=== PATIENT | male | born 1940 | race Caucasian/White ===

== ENCOUNTER 2017-02-20 06:05 | Day surgery (SDC) | payer MEDICARE ==
[~2017-02-20] VITALS: Ht 177.8 cm; Wt 88.4 kg
[~2017-02-20 06:05] MED LIST: ALLO100T PO; ASPI81 PO; BENETAB OR; CARV12.5 PO; DIPH25 PO; ENAL20TA PO; EXEN10PE SQ; FAMO1TAB36 PO; FISH1000 PO; GLYB1TAB51 PO; LIPI40TA PO; LOTR5CAP2 PO; METF-324 PO; MOME17I; TAB-TAB PO; VIT D3 PO; VITB OR
[2017-02-20] MEDS ORDERED: NS 1000P @30 MLS/HR (KVO) IV SCH (06:30)
[2017-02-20 06:38] VITALS: BP 167/83; PULSE 65; RESP 18; TEMP 98.3; O2SAT 99
[2017-02-20] MEDS ORDERED: PANT40TA3 PO (06:47)
[2017-02-20] MEDS ORDERED: ENAL20TA PO (06:47)
[2017-02-20] MEDS ORDERED: CENTTAB PO (06:47)
[2017-02-20] MEDS ORDERED: COEN400C (06:47)
[2017-02-20] MEDS ORDERED: TRIA1SPR6 EACH NARE (06:47)
[2017-02-20] MEDS ORDERED: NITR0.4S SL (06:47)
[2017-02-20] MEDS ORDERED: GLYB6TAB PO (06:47)
[2017-02-20] MEDS ORDERED: CARV6.252 PO (06:47)
[2017-02-20] MEDS ORDERED: COBA1000 PO (06:47)
[2017-02-20] MEDS ORDERED: TURMCAP (06:47)
[2017-02-20] MEDS ORDERED: LANTUS2P (06:47)
[2017-02-20] MEDS ORDERED: AMLO10TA2 PO (06:47)
[2017-02-20] MEDS ORDERED: BENA25CA4 (06:47)
[2017-02-20] MEDS ORDERED: ATOR40TA16 PO (06:47)
[2017-02-20] MEDS ORDERED: METF1000 PO (06:47)
[2017-02-20] MEDS ORDERED: ALLO100T PO (06:47)
[2017-02-20] MEDS ORDERED: LOPE7.5C PO (06:47)
[2017-02-20] MEDS ORDERED: NOVOLOGP2 SQ (06:47)
[2017-02-20] MEDS ORDERED: FISH1000 (06:47)
[2017-02-20] MEDS ORDERED: ASPI1TAB69 PO (06:47)
[2017-02-20 07:33] LABS: AUTOMATED NEUTROPHIL # 4.1 TH/MM3 (1.8-7.7); BASOPHIL # 0.1 TH/MM3 (0-0.2); BASOPHIL % 0.7 % (0.0-2.0); EOSINOPHIL # 0.1 TH/MM3 (0-0.4); EOSINOPHIL % 0.9 % (0.0-4.0); HEMO FLAGS DIFF FINAL; LYMPHOCYTE # 4.7 TH/MM3 (1.0-4.8); MEAN CELL VOLUME 85.5 FL (80.0-100.0); MEAN CORPUSCULAR HEMOGLOBIN 30.4 PG (27.0-34.0); MEAN CORPUSCULAR HGB CONC 35.5 % (32.0-36.0); MONO % 6.6 % (0.0-8.0); NEUT % 42.8 % (16.0-70.0); PLATELET COUNT 117 TH/MM3 (150-450); RED CELL DISTRIBUTION WIDTH 15.4 % (11.6-17.2); WHITE BLOOD COUNT 9.7 TH/MM3 (4.0-11.0)
[2017-02-20 07:45] LABS: BICARBONATE 25.5 MEQ/L (21.0-32.0); POTASSIUM 4.4 MEQ/L (3.5-5.1)
[2017-02-20] MEDS ORDERED: HEPARIN-NS/PF INJ 500 ML ONE (08:07)
[2017-02-20 08:13] LABS: APTT (PATIENT) 25.3 SEC (24.3-30.1); INTERNATIONAL NORMALIZED RATIO 1.1 RATIO; PROTHROMBIN TIME - PATIENT 12.7 SEC (9.8-11.6)
[2017-02-20] MEDS ORDERED: IOHEXOL 350 MG/ML 100 ML BTL (for Cath Lab) OTHER ONE (09:00)
[2017-02-20] MEDS ORDERED: LORazepam 2 MG/ML VIAL IV PRN (09:15)
[2017-02-20] MEDS ORDERED: BACITRACIN OINT 0.9 GM PKT TOP ONE (09:15)
[2017-02-20] MEDS ORDERED: ATROPINE SULFATE 1 MG/ML VIAL IV PRN (09:15)
[2017-02-20] MEDS ORDERED: ONDANSETRON HCL 4 MG/2 ML VIAL IV PRN (09:15)
[2017-02-20] MEDS ORDERED: METOCLOPRAMIDE HCL 10 MG/2 ML VIAL IV PRN (09:15)
[2017-02-20] MEDS ORDERED: LIDOCAINE HCL 1% 50 ML VIAL INFIL PRN (09:15)
[2017-02-20] MEDS ORDERED: MISC INFORMATION XX ONE (09:15)
[2017-02-20] MEDS ORDERED: SODIUM CHLOR 0.9% 250 ML INJ 250 ML IV PRN (09:15)
--- NOTE | 2017-02-20 10:06 | MA ---
cc: KANNAN SOSA MD DATE 02/20/2017 PROCEDURE Cardiac catheterization. The patient was prepped and draped in the usual fashion. A 6 sheath was inserted percutaneously into the left femoral artery. The right femoral artery was attempted to be cannulated but the wire was unable to pass easily. Coronary angiography was done with Cecilio preformed catheters and left ventriculography was done in the right anterior oblique projection with a pigtail catheter. RESULTS Aortic pressure was 140/90. Left ventricular end-diastolic pressure was 9. There was no gradient across the aortic valve. CORONARY ARTERIOGRAPHY The left main coronary demonstrated a 50% stenosis in its distal portion. The left anterior descending artery arose at the takeoff of the first diagonal branch. The LAD demonstrated a stenosis of 90%. A second 50% stenosis was present in the midportion of the LAD. The distal portion of the artery appeared to be free from significant disease. It was noted that the LAD and diagonal system as well as the circumflex system demonstrates significant calcification on fluoroscopy. The first diagonal after taking off from the LAD demonstrated a 75% stenosis in its midportion. It then bifurcated into two secondary branches which were free from disease. The left circumflex artery arose from the left main. No significant stenoses were seen in the left circumflex system. The right coronary was anatomically dominant. Significant calcification was present in its proximal portion. At the midportion of the artery, a subtotal stenosis was present compromising the lumen by approximately 99%. Collateralization of the of the first septal auxiliary engineer was realized from the right coronary system with some faint collateralization of the LAD system from the right coronary. LEFT VENTRICULOGRAPHY Left ventriculography demonstrated normal left ventricle with EF estimated at 50%. No mitral regurgitation was present. Kannan Sosa MD DLW/SSB /9:05 AM /10:00 AM
--- NOTE | 2017-02-20 14:20 | PD.CAR.PN ---
CVT Progress Note Subjective/Hospital Course: sts data discussed with pt RISK SCORES About the STS Risk Calculator Procedure: CAB Only Risk of Mortality: 0.933% Morbidity or Mortality: 10.622% Long Length of Stay: 3.692% Short Length of Stay: 54.635% Permanent Stroke: 0.757% Prolonged Ventilation: 6.164% DSW Infection: 0.661% Renal Failure: 1.94% Reoperation: 4.503% Objective: Vital Signs Date Time Temp Pulse Resp B/P Pulse Ox O2 Delivery O2 Flow Rate FiO2 02/20/17 09:19 98 Room Air 02/20/17 06:38 98.3 65 18 167/83 99 Labs: Laboratory Tests Test 02/20/17 02/20/17 07:20 07:50 White Blood Count 9.7 TH/MM3 (4.0-11.0) Red Blood Count 4.10 MIL/MM3 (4.50-5.90) Hemoglobin 12.4 GM/DL (13.0-17.0) Hematocrit 35.0 % (39.0-51.0) Mean Corpuscular Volume 85.5 FL (80.0-100.0) Mean Corpuscular Hemoglobin 30.4 PG (27.0-34.0) Mean Corpuscular Hemoglobin 35.5 % Concent (32.0-36.0) Red Cell Distribution Width 15.4 % (11.6-17.2) Platelet Count 117 TH/MM3 (150-450) Mean Platelet Volume 7.5 FL (7.0-11.0) Neutrophils (%) (Auto) 42.8 % (16.0-70.0) Lymphocytes (%) (Auto) 49.0 % (9.0-44.0) Monocytes (%) (Auto) 6.6 % (0.0-8.0) Eosinophils (%) (Auto) 0.9 % (0.0-4.0) Basophils (%) (Auto) 0.7 % (0.0-2.0) Neutrophils # (Auto) 4.1 TH/MM3 (1.8-7.7) Lymphocytes # (Auto) 4.7 TH/MM3 (1.0-4.8) Monocytes # (Auto) 0.6 TH/MM3 (0-0.9) Eosinophils # (Auto) 0.1 TH/MM3 (0-0.4) Basophils # (Auto) 0.1 TH/MM3 (0-0.2) CBC Comment DIFF FINAL Differential Comment Sodium Level 132 MEQ/L (136-145) Potassium Level 4.4 MEQ/L (3.5-5.1) Chloride Level 98 MEQ/L (98-107) Carbon Dioxide Level 25.5 MEQ/L (21.0-32.0) Anion Gap 9 MEQ/L (5-15) Blood Urea Nitrogen 13 MG/DL (7-18) Creatinine 0.94 MG/DL (0.60-1.30) Estimat Glomerular Filtration 78 ML/MIN (>89) Rate Random Glucose 161 MG/DL (74-106) Calcium Level 8.5 MG/DL (8.5-10.1) Prothrombin Time 12.7 SEC (9.8-11.6) Prothromb Time International 1.1 RATIO Ratio Activated Partial 25.3 SEC Thromboplast Time (24.3-30.1) Result Diagram: 02/20/17 0720 02/20/17 0720 Melissa Smith Feb 20, 2017 14:20
--- NOTE | 2017-02-20 15:53 | RADRPT ---
EXAM DATE/TIME: 02/20/2017 14:40 [facility] COMPARISON: No previous studies available for comparison. INDICATIONS : Preop cardiac surgery. MEDICAL HISTORY : Hypertension. Diabetes. Inguinal hernia. Basal cell left arm. SURGICAL HISTORY : Angioplasty. Eye surgery. ENCOUNTER: Initial ACUITY: 1 day PAIN SCORE: 0/10 LOCATION: Bilateral leg. TECHNIQUE: Venous ultrasound of the left and right leg was performed from the inguinal ligament to the proximal calf. Real-time, color Doppler and spectral tracing, compression and augmentation techniques were us ed. FINDINGS: RIGHT LEG: There is normal compressibility of the deep venous system from the inguinal region to the proximal ca lf. No echogenic clot is seen in the lumen of the common femoral, femoral, popliteal, and posterior tibial veins. There is a normal response of the venous system to proximal and distal augmentation an d respiration. LEFT LEG: There is normal compressibility of the deep venous system from the inguinal region to the proximal ca lf. No echogenic clot is seen in the lumen of the common femoral, femoral, popliteal, and posterior tibial veins. There is a normal response of the venous system to proximal and distal augmentation an d respiration. CONCLUSION: 1. No evidence of deep venous thrombosis. Kannan Elam MD on February 20, 2017 at 15:50 Board Certified Radiologist. This report was verified electronically.
[2017-02-20 16:16] LABS: BLOOD, URINE NEG (NEG); GLUCOSE,URINE NEG (NEG); KETONE, URINE TRACE mg/dL (NEG); NITRITE,URINE NEG (NEG); PH, URINE 7.5 (5.0-8.5); URINE COLOR YELLOW (YELLW/STRAW)
[2017-02-20 16:17] LABS: COMMENT (UR) CATH-CULT NOT IND; CULTURE IF INDICATED CATH CULTURE NOT IND
--- NOTE | 2017-02-20 16:21 | RADRPT ---
EXAM DATE/TIME: 02/20/2017 15:35 [facility] COMPARISON: No previous studies available for comparison. INDICATIONS : Evaluate for pneumonia, pneumothorax or communicable disease.Pre op for bypass surgery 02-23-17 MEDICAL HISTORY : Hypertension. diabetes SURGICAL HISTORY : angioplasty ENCOUNTER: Initial ACUITY: 1 day PAIN SCORE: 0/10 LOCATION: Bilateral chest FINDINGS: A single view of the chest demonstrates the lungs to be symmetrically aerated without evidence of mas s, infiltrate or effusion. The cardiomediastinal contours are unremarkable. Osseous structures are intact. CONCLUSION: No acute disease. Kunal Osborne MD on February 20, 2017 at 16:19 Board Certified Radiologist. This report was verified electronically.
--- NOTE | 2017-02-20 16:24 | RADRPT ---
EXAM DATE/TIME: 02/20/2017 15:19 [facility] COMPARISON: No previous studies available for comparison. INDICATIONS : PreOp cardiac surgery. MEDICAL HISTORY : Hypertension. Diabetes. Basal cell left arm. Inguinal hernia. SURGICAL HISTORY : Angioplasty. Eye surgery. ENCOUNTER: Initial ACUITY: 1 day PAIN SCORE: 0/10 LOCATION: Bilateral neck PEAK SYSTOLIC VELOCITIES (cm/sec): ICA/CCA RATIO: Right: 0.8 Left: 1.1 ICA: Right: 98 Left: 128 CCA: Right: 122 Left: 114 ECA: Right: 122 Left: 197 VERTEBRAL: Right: 50 antegrade Left: 55 antegrade Elevated flow velocities and ICA/CCA ratios have been found to correlate with increased degrees of vessel stenosis, calculated as percentage of diameter relative to a normal segment of distal ICA/CCA FINDINGS: Ultrasound of the carotid arteries was performed bilaterally using real-time Doppler and color Dopple r imaging. Examination of the right carotid artery demonstrates moderate fibrous plaque within the bifurcation. No waveform abnormalities are identified and no spectral broadening is seen. Examination of the left carotid artery demonstrates moderate fibrous plaque within the bulb. No waveform abnormalities are i dentified and no spectral broadening is seen. There is antegrade flow in both vertebral arteries. CONCLUSION: No evidence of hemodynamically significant lesion. Kannan Elam MD on February 20, 2017 at 16:21 Board Certified Radiologist. This report was verified electronically.
--- NOTE | 2017-02-20 16:29 | RADRPT ---
EXAM DATE/TIME: 02/20/2017 14:50 [facility] COMPARISON: No previous studies available for comparison. INDICATIONS : Preop cardiac surgery. MEDICAL HISTORY : Hypertension. Diabetes. Inguinal hernia. Basal cell left arm. SURGICAL HISTORY : Angioplasty. Inguinal hernia repair. Eye surgery. ENCOUNTER: Initial ACUITY: 1 day PAIN SCORE: 0/10 LOCATION: Bilateral leg. GREATER SAPHENOUS VEIN THIGH: PROXIMAL: Right 4 mm Left 5 mm MID: Right 2 mm Left 2 mm DISTAL: Right 2 mm Left 2 mm CALF: PROXIMAL: Right 2 mm Left 2 mm MID: Right 2 mm Left 2 mm DISTAL: Right 1 mm Left 2 mm FINDINGS: The venous system of the lower extremities are patent by color Doppler imaging. Measurements of the leg veins (in mm) are listed above. CONCLUSION: 1. Venous mapping as above Kannan Elam MD on February 20, 2017 at 16:27 Board Certified Radiologist. This report was verified electronically.
[2017-02-20 17:03] LABS: HEMOGLOBIN A1b 1.6 %; HEMOGLOBIN Ao 85.5 %; HEMOGLOBIN LA1C 2.3 %; HEMOGLOBIN P3 3.8 %
--- NOTE | 2017-02-21 07:24 | MB ---
cc: QUIANA OLIVIA MD DATE OF CONSULTATION 02/20/2017 REASON FOR CONSULTATION A 76-year-old male patient of Dr. Jayna Asencio, Dr. Kannan Sosa, who has a history of coronary artery disease recently started noticing some increased fatigue while he had been working out on the treadmill, started in October as he had worsening tolerance. He underwent a stress test which was unremarkable by Dr. Kannan Sosa but then he went to a trip at [place] recently last week, noticed some tightness with walking and became short of breath. The tightness was relieved with rest. He underwent cardiac cath today by Dr. Kannan Sosa which showed an EF of 60%, left main disease 50%, proximal LAD 90%. The diagonal 75%. The RCA 99%. We were consulted to evaluate for coronary artery bypass grafting. PAST MEDICAL HISTORY Significant for: 1. Coronary artery disease. 2. Diverticulosis. 3. Diabetes mellitus on insulin and oral medication. 4. Gout. 5. Hypertension. 6. Hyperlipidemia. 7. Monoclonal gammopathy. 8. Obesity. 9. Peripheral arterial disease. PAST SURGICAL HISTORY 1. Bilateral cataract surgery. 2. Colonoscopy. 3. He has had some basal cell carcinoma of the left upper arm removed 1982. 4. He has had some detached retina on the right times two, left times one. 5. He has had prior cryosurgery. 6. And scleral banding. 7. He has had history of hand surgery with Dupuytren's contracture of the right third and fifth fingers, the left index finger. 8. He has had a right inguinal hernia repair. 9. He has had angioplasty x2 in the past to the mid LAD. ALLERGIES HE HAS NO KNOWN ALLERGIES, HOWEVER, HE HAS OAK OR [place]. FAMILY HISTORY Mother complications after aortic valve surgery. She had a sternal infection, they were unable to do the bypass surgery. Father in a plane crash in World War II. Paternal grandfather with coronary artery disease. SOCIAL HISTORY The patient , two children, two stepchildren. Smoked for 15 years 1/3 of pack, quit in 1980. Was drinking up to two cocktails per evening but since he noticed this chest discomfort he has rarely had any alcohol intake. REVIEW OF SYSTEMS GENERAL: No night sweats, fever, heat and cold intolerance. SKIN: No psoriasis, itching or hives. HEENT: No blurred vision, hearing loss. RESPIRATORY: Positive for shortness of breath. CARDIOVASCULAR: As above in HPI. GASTROINTESTINAL: No diarrhea, vomiting. GENITOURINARY: No burning, frequency, urgency CENTRAL NERVOUS SYSTEM: No history of TIA, CVA, seizure disorder. ENDOCRINE: Positive for diabetes. PHYSICAL EXAMINATION VITAL SIGNS: On exam blood pressure 160/80, heart rate 65, temperature max 98.3. GENERAL: Patient is awake, alert, no acute distress. HEENT: Head is normocephalic, atraumatic. Oral mucosa pink, moist, good dentition. NECK: Supple. No JVD. CARDIOVASCULAR: Heart sounds S1-S2, regular rate and rhythm. There is a soft systolic murmur left sternal border. LUNGS: Clear to auscultation. No wheezes, rales or rhonchi. ABDOMEN: Soft, nontender. No masses or organomegaly. Extremities: No cyanosis, clubbing or edema. LABORATORY FINDINGS Shows hemoglobin 12, hematocrit 35, white cell count 9.7, platelet count 117. Sodium 132, potassium 4.4, BUN 13, creatinine 0.94. INR 1.1. Carotid ultrasound of leg vein mapping pending. Also hemoglobin A1c and MRSA screen. Procedures, alternatives have been discussed with the patient. The cardiac films have been evaluated by Dr. Quiana Olivia. The patient at this time is agreeable to proceed for surgery with bypass grafting to the LAD, diagonal and the RCA. STS data will be documented and discussed with the patient and placed in the electronic record. PLAN The plan will be for surgery on February 23. DICTATED BY: KAM Wisdom Quiana VINCENT /2:00 PM /7:22 AM
--- NOTE | 2017-02-28 10:21 | RSPPFT ---
DATE OF PROCEDURE: 02/20/17 COMMENTS: Spirometry with FVC of 3.8 predicted 3.9, FEV1 of 3.0 predicted 3.1, FEV1/FVC ratio 80% predicted 78%. IMPRESSION: On the basis of the above, patient has flow values within the predicted range.
== END 2017-02-20 16:16 | disposition home or self-care (01) ==
LOC: HDOC 06:05 → HDIC 06:05 → HDOC 16:16
PROVIDERS: ATTEND Internal Medicine Cardiovascular Disease
DX: I25.10 Atherosclerotic heart disease of native coronary artery without angina pectoris (principal); I10 Essential (primary) hypertension; E78.5 Hyperlipidemia, unspecified; I73.9 Peripheral vascular disease, unspecified; E11.9 Type 2 diabetes mellitus without complications; E66.9 Obesity, unspecified; M10.9 Gout, unspecified; Z79.4 Long term (current) use of insulin; Z85.828 Personal history of other malignant neoplasm of skin; Z87.891 Personal history of nicotine dependence; Z01.818 Encounter for other preprocedural examination
CPT/HCPCS: 71010; 80048; 81001; 83036; 85025; 85610; 85730; 87641; 93458; 93880; 93970; 93998; 94010; C1769; C1893; J1644; Q9967

== ENCOUNTER 2017-02-21 10:07 | Inpatient (IN) | payer MEDICARE ==
[~2017-02-21] VITALS: Ht 177.8 cm; Wt 87.1 kg
[~2017-02-21 10:07] MED LIST changes: +AMLO10TA2 PO; +ASPI1TAB69 PO; -ASPI81 PO; +ATOR40TA16 PO; +BENA25CA4; -BENETAB OR; -CARV12.5 PO; +CARV6.252 PO; +CENTTAB PO; +COBA1000 PO; +COEN400C; -DIPH25 PO; -EXEN10PE SQ; -FAMO1TAB36 PO; +FISH1000; -FISH1000 PO; -GLYB1TAB51 PO; +GLYB6TAB PO; +LANTUS2P; -LIPI40TA PO; +LOPE7.5C PO; -LOTR5CAP2 PO; -METF-324 PO; +METF1000 PO; -MOME17I; +NITR0.4S SL; +NOVOLOGP2 SQ; +PANT40TA3 PO; -TAB-TAB PO; +TRIA1SPR6 EACH NARE; +TURMCAP; -VITB OR
[2017-02-23] VITALS (9 sets, daily range): BP systolic 88–149; BP diastolic 49–80; PULSE 58–65; RESP 14–18; TEMP 97.2–99.2; O2SAT 94–99
[2017-02-23] MEDS ORDERED: PROTAMINE SULFATE 250 MG/25 ML VIAL IV ONE (05:00)
[2017-02-23] MEDS ORDERED: DEXMEDETOMIDINE INJ 50 ML IV ONE (05:00)
[2017-02-23] MEDS ORDERED: PROPOFOL 1000 MG/100 ML INJ 100 ML IV ONE (05:00)
[2017-02-23] MEDS ORDERED: AMINOCAPROIC ACID INJ 250 MG/ML 20 ML VIAL IV ONE (05:00)
[2017-02-23] MEDS ORDERED: ARTIFICIAL TEARS OPTH OINT 3.5 APPLIC/3.5 GM TUBO ONE (05:00)
[2017-02-23] MEDS ORDERED: MAGNESIUM SULFATE 1000 MG/2 ML VIAL (PED) IV ONE (05:00)
[2017-02-23] MEDS ORDERED: EPINEPHrine HCL (1:1000) 1 MG/ML VIAL IV ONE (05:00)
[2017-02-23] MEDS ORDERED: HEPARIN SODIUM - SQ 10,000 UNITS/ML VIAL SQ ONE (05:00)
[2017-02-23] MEDS ORDERED: NEOSTIGMINE METHYLSULFATE 10 MG/10 ML VIAL IV PUSH ONE (05:00)
[2017-02-23] MEDS ORDERED: METOPROLOL TARTRATE 25 MG TAB PO PRN (09:30)
[2017-02-23] MEDS ORDERED: METOPROLOL TARTRATE 25 MG TAB PO SCH (09:30)
[2017-02-23] MEDS ORDERED: LACTATED RINGER'S 1000 ML IV PRN (09:30)
[2017-02-23] MEDS ORDERED: SODIUM CHLORIDE 0.9% FLUSH 10 ML FLUSH IV FLUSH PRN ×3 (09:30→17:30)
[2017-02-23] MEDS ORDERED: CEFAZOLIN 500 MG in NS IRR BTL 500 ML IRRIGATION SCH (09:30)
[2017-02-23] MEDS ORDERED: INSULIN HUMAN REGULAR 1,000 UNITS/10 ML VIAL SQ PRN (09:30)
[2017-02-23] MEDS ORDERED: INSULIN REGULAR 100 UNITS in NS 100 ML IV SCH (09:30)
[2017-02-23] MEDS ORDERED: ceFAZolin 2 GM PREMIX 50 ML IV SCH (09:30)
[2017-02-23] MEDS ORDERED: POVIDONE IODINE 5% (ANTISEPSIS KIT) 4 APPLICATIONS EACH NARE PRN (09:30)
[2017-02-23] MEDS ORDERED: CHLORHEXIDINE GLUCONATE 2 % 1 PACK (2 CLOTHS) TOPICAL PRN (09:30)
[2017-02-23] MEDS ORDERED: SODIUM CHLORID 0.9% 500 ML IV PRN (09:30)
[2017-02-23] MEDS ORDERED: PAPAVERINE 60 MG-NITROGLYCERIN 100 MCG-DILTIAZEM 100 MG in NS 100 ML IRRIGATION SCH ×4 (09:30)
[2017-02-23] MEDS ORDERED: CHLORHEXIDINE GLUCONATE 4% SOLN 120 ML BTL TOPICAL SCH (09:30)
[2017-02-23] MEDS ORDERED: SODIUM CHLOR 0.9% 1000 ML INJ 1,000 ML IV ONE (11:52)
[2017-02-23] MEDS ORDERED: SODIUM CHLOR 0.9% 250 ML INJ 500 ML IV ONE (11:52)
[2017-02-23] MEDS ORDERED: SODIUM CHLORIDE 0.9% INJ 200 ML IV ONE (11:52)
[2017-02-23] MEDS ORDERED: LACTATED RINGER'S 1000 ML INJ 3,000 ML IV ONE (11:52)
[2017-02-23] MEDS ORDERED: SODIUM CHLORID 0.9% 500 ML INJ 500 ML IV ONE (11:53)
[2017-02-23] MEDS ORDERED: NORMOSOL R INJ 2,000 ML IV ONE (11:53)
[2017-02-23] MEDS ORDERED: VANCOMYCIN HCL 1000 MG VIAL ONE (11:58)
[2017-02-23] MEDS ORDERED: ceFAZolin 2 GM PREMIX 50 ML ONE (11:59)
[2017-02-23] MEDS ORDERED: HEPARIN SODIUM - SQ 10,000 UNITS/ML VIAL ONE (11:59)
[2017-02-23] MEDS ORDERED: fentaNYL CITRATE 1000 MCG/20 ML VIAL ONE (12:25)
[2017-02-23] MEDS ORDERED: MIDAZOLAM HCL 5 MG/5 ML VIAL ONE (12:25)
[2017-02-23] MEDS ORDERED: LACTATED RINGER'S 1000 ML INJ 500 ML IV PRN (17:22)
[2017-02-23] MEDS ORDERED: DOBUTamine PREMIX DRIP 250 ML IV SCH (17:22)
[2017-02-23] MEDS ORDERED: Post-op Orders (for Pharmacy) MISC OTHER ONE (17:30)
[2017-02-23] MEDS ORDERED: DEXMEDETOMIDINE INJ 200 MCG in SODIUM CHLORIDE 0.9% INJ 50 ML IV SCH (17:30)
[2017-02-23] MEDS ORDERED: MORPHINE SULFATE 4 MG/ML INJ IV PRN (17:30)
[2017-02-23] MEDS ORDERED: DEXTROSE 50% IN WATER 50 ML VIAL(D50) IV PUSH PRN (17:30)
[2017-02-23] MEDS ORDERED: DOPamine INJ PREMIX 500 ML IV SCH (17:30)
[2017-02-23] MEDS ORDERED: POTASSIUM CHLOR 20 MEQ PREMIX 100 ML IV PRN ×3 (17:30)
[2017-02-23] MEDS ORDERED: NITROGLYCERIN-DEXTROSE INJ 250 ML IV SCH (17:30)
[2017-02-23] MEDS ORDERED: EPINEPHrine (1:1000) INJ 4 MG in DEXTROSE 5% IN WATER INJ 246 ML IV SCH ×2 (17:30)
[2017-02-23] MEDS ORDERED: POTASSIUM CHLORIDE 20 MEQ CONTROLLED RELEASE TAB PO PRN ×2 (17:30)
[2017-02-23] MEDS ORDERED: hydrALAZINE HCL 20 MG/ML VIAL IV PRN (17:30)
[2017-02-23] MEDS ORDERED: CALCIUM CHLORIDE 10% 1 GRAM/10 ML VIAL IV PRN (17:30)
[2017-02-23] MEDS ORDERED: CALCIUM CHLORIDE INJ 1 GM in SODIUM CHLORIDE 0.9% INJ 100 ML IV PRN (17:30)
[2017-02-23] MEDS ORDERED: METOPROLOL TARTRATE 5 MG/5 ML VIAL IV PUSH PRN (17:30)
[2017-02-23] MEDS ORDERED: ALBUMIN HUMAN 5% 12.5 GM/250 ML BOTTLE IV PRN (17:30)
[2017-02-23] MEDS ORDERED: ACETAMINOPHEN 650 MG SUPP RECTAL PRN (17:30)
[2017-02-23] MEDS ORDERED: ceFAZolin INJ 1,000 MG VIAL IV ONE (17:30)
[2017-02-23] MEDS ORDERED: MEPERIDINE HCL 25 MG/ML VIAL IV PRN (17:30)
[2017-02-23] MEDS ORDERED: PHENYLEPHRINE INJ 40 MG in DEXTROSE 5% IN WATE 500 ML INJ 496 ML IV SCH ×2 (17:30)
[2017-02-23] MEDS ORDERED: MAGNESIUM SULFATE INJ 2 GM in SODIUM CHLORIDE 0.9% INJ 100 ML IV PRN ×4 (17:30)
[2017-02-23] MEDS ORDERED: CLEVIDIPINE INJ 50 ML IV SCH (17:30)
[2017-02-23] MEDS ORDERED: ACETAMINOPHEN 325 MG TAB PO PRN (17:30)
[2017-02-23] MEDS ORDERED: ONDANSETRON HCL 4 MG/2 ML VIAL IV PUSH PRN (17:30)
--- NOTE | 2017-02-23 17:32 | PD.OP ---
cc: Izaiah Guadalupe MD; Kannan Sosa MD Operative Report Date of Surgery: Feb 23, 2017 Preoperative Diagnosis: Postoperative Diagnosis: Procedure: 1. Off-pump Coronary Artery Bypass Grafting x 3 with left internal mammary artery (KENNEDY) to Diagonal ! (D1), reverse saphenous vein graft to the OM1, reverse saphenous vein graft to the RPDA 2. Transmyocardial Laser Revascularization (Anterior wall - 14 channels) 3. Left Leg Endoscopic Vein [place] 4. Intraoperative Vein Mapping. . Surgeon: Izaiah Guadalupe Wax Engraver(s): Lakesha Pineda . Operation and Findings: PREPROCEDURE DIAGNOSES 1. Severe Multi Vessel Coronary Artery Disease. 2. Unstable Angina POSTPROCEDURE DIAGNOSES Same SURGICAL PROCEDURE 1. Off-pump Coronary Artery Bypass Grafting x 3 with left internal mammary artery (KENNEDY) to Diagonal ! (D1), reverse saphenous vein graft to the OM1, reverse saphenous vein graft to the RPDA 2. Transmyocardial Laser Revascularization (Anterior wall - 14 channels) 3. Left Leg Endoscopic Vein [place] 4. Intraoperative Vein Mapping. SURGEON Izaiah Guadalupe MD BROADCAST CORRESPONDENT MATHEW Smith ANESTHESIA General endotracheal DEPUTY CLERK OF COURT JOSH Erickson MD PREPARATION ChloraPrep. COUNTS Needle, sponge, and instrument counts were correct. DRAINS Two 32-Upper Sorbian mediastinal tubes. COMPLICATIONS None. INDICATIONS FOR PROCEDURE The patient is a 76-year-old presenting with chest pain. Patient was noted to have multi-vessel coronary artery disease. The patient is being brought to the operating room for surgical revascularization therapy. PROCEDURE Patient was brought to the operating room and placed supine on the OR table. Following the induction of adequate general endotracheal anesthesia and placement of appropriate monitoring devices, intraoperative vein mapping was performed which revealed suitable-caliber conduit in bilateral LE. The patient was then prepped and draped in standard sterile fashion. Next, 2500 units of intravenous heparin was given. The left greater saphenous vein was harvested endoscopically. This was a usable caliber conduit. Simultaneously, a median sternotomy was performed and the left internal mammary artery dissected free off the posterior sternal table. The patient was systemically heparinized and anticoagulation monitored by serial ACT measurements. The internal mammary artery had excellent pulsatile flow in it and was a decent-caliber conduit. The pericardium was then divided in the midline, the cradle created and targets analyzed. The LAD was noted to be completely calcified through its entire course with no spots available for bypassing. At this point, all anastomoses were performed in a beating-heart fashion using the Maquet stabilizing system with intracoronary shunts. The left internal mammary artery was anastomosed to the diagonal 1 (1.5 mm) in an end-to-side fashion using 7-0 Prolene. Segment of saphenous vein graft was then anastomosed to the OM1 (1.0 mm) in an end-to-side fashion using 7-0 Prolene. The final segment of vein was anastomosed to the RPDA (1.0 mm) in an end-to-side fashion using a running 7-0 Prolene. Of note, all of his coronary target vessels were severely and diffusely calcified. The proximal anastomoses were then constructed to the ascending aorta in a running manner using 6-0 Prolene. All anastomotic sites were inspected and appeared to be hemostatic and patent. Transmyocardial laser revascularization was then performed to the anterior wall. 14 transmural channels were created using the Cryolife laser. Protamine solution was given. Strict hemostasis was assured. The closure was undertaken. 2 chest tubes were placed. The pericardium was reapproximated in the midline. The sternum was approximated using sternal wires. The muscular and fascial layer were then closed in 3 layers. The endoscopic vein harvest site was closed in 2 layers. The patient tolerated the procedure well and was transferred to CVICU in stable condition. Izaiah Guadalupe MD Feb 23, 2017 17:31
[2017-02-23] MEDS ORDERED: ALBUMIN HUMAN 5% 12.5 GM/250 ML BOTTLE IV ONE (17:59)
[2017-02-23] MEDS ORDERED: PHENYLEPHRINE HCL 10 MG/ML VIAL ONE (18:05)
--- NOTE | 2017-02-23 18:16 | RADRPT ---
EXAM DATE/TIME: 02/23/2017 17:39 [facility] COMPARISON: CHEST SINGLE AP, February 20, 2017, 15:35. INDICATIONS : CABG placement. MEDICAL HISTORY : Hypertension. SURGICAL HISTORY : None. ENCOUNTER: Subsequent ACUITY: 3 days PAIN SCORE: Non-responsive. LOCATION: Bilateral chest FINDINGS: Mild left lung base atelectasis and/or infiltrate is seen. There is no appreciable pleural effusion f or technique. Heart and mediastinum are unremarkable. There is evidence for prior median sternotomy . ET tube is present with tip overlapping approximately 3 cm above the rajendra. NG tube is present wit h tip in the stomach. Mediastinal drainage tube is in place. Chest tube is present on the left side. Left subclavian line is present with tip overlapping the expected region of the SVC. No definite pneu mothorax is seen for technique. CONCLUSION: Mild left lung base atelectasis and/or infiltrate is seen. Vijay Barron MD on February 23, 2017 at 18:12 Board Certified Radiologist. This report was verified electronically.
[2017-02-23] MEDS: ACETAMINOPHEN 1000 MG/100 ML VIAL IV SCH (18:29)
[2017-02-23] MEDS: KETOROLAC TROMETHAMINE 30 MG/ML (IVP) VIAL IV PUSH PRN (18:49)
[2017-02-23] MEDS ORDERED: INSULIN REGULAR (IV INFUSION) 100 UNITS in SODIUM CHLORIDE 0.9% INJ 99 ML IV SCH (19:00)
[2017-02-23] MEDS: ceFAZolin 2 GM PREMIX 50 ML IV SCH (20:29)
[2017-02-23] MEDS: AMIODARONE 200 MG TAB PO SCH (20:30)
[2017-02-23] MEDS: SODIUM CHLORIDE 0.9% FLUSH 10 ML FLUSH IV FLUSH SCH (20:30)
[2017-02-23] MEDS: ACETAMINOPHEN/HYDROcodone 325 MG/5 MG TAB PO PRN (20:30)
[2017-02-24] VITALS (19 sets, daily range): BP systolic 102–131; BP diastolic 51–73; PULSE 67–94; RESP 16–17; TEMP 98.3–98.6; O2SAT 93–98
[2017-02-24] MEDS: ACETAMINOPHEN/HYDROcodone 325 MG/5 MG TAB PO PRN ×5 (00:14→21:00)
[2017-02-24] MEDS: ACETAMINOPHEN 1000 MG/100 ML VIAL IV SCH ×4 (00:30→12:40)
[2017-02-24] MEDS: KETOROLAC TROMETHAMINE 30 MG/ML (IVP) VIAL IV PUSH PRN (02:54)
[2017-02-24] MEDS: ceFAZolin 2 GM PREMIX 50 ML IV SCH ×3 (04:53→21:02)
[2017-02-24] MEDS: PANTOPRAZOLE SOD 40 MG DELAYED RELEASE TAB PO SCH (04:53)
[2017-02-24 05:12] LABS: HEMATOCRIT 23.1 % (39.0-51.0); MEAN CELL VOLUME 86.3 FL (80.0-100.0); MEAN CORPUSCULAR HEMOGLOBIN 28.8 PG (27.0-34.0); MEAN CORPUSCULAR HGB CONC 33.3 % (32.0-36.0); PLATELET COUNT 103 TH/MM3 (150-450); RED BLOOD COUNT 2.67 MIL/MM3 (4.50-5.90); RED CELL DISTRIBUTION WIDTH 15.2 % (11.6-17.2); REVIEW FLAG FINAL; WHITE BLOOD COUNT 12.6 TH/MM3 (4.0-11.0)
[2017-02-24 05:40] LABS: BICARBONATE 23.3 MEQ/L (21.0-32.0); MAGNESIUM 2.1 MG/DL (1.5-2.5); POTASSIUM 4.4 MEQ/L (3.5-5.1)
[2017-02-24 05:58] LABS: CALCIUM-PROTEIN CORRECTED 8.7 MG/DL (8.5-10.1)
--- NOTE | 2017-02-24 06:23 | RADRPT ---
EXAM DATE/TIME: 02/24/2017 05:20 [facility] COMPARISON: CHEST SINGLE AP, February 23, 2017, 17:39. INDICATIONS : Status post CABG. MEDICAL HISTORY : Hypertension. SURGICAL HISTORY : None. ENCOUNTER: Subsequent ACUITY: 4 - 6 days PAIN SCORE: Non-responsive. LOCATION: chest FINDINGS: Right lung remains clear. On the left, there is worsening consolidation and effusion at the base. Lef t chest tube remains in place. No pneumothorax. There is a left subclavian catheter tip projects over the aortic arch. Mediastinal drain remains in p lace. CONCLUSION: 1. Worsening basilar consolidation and small effusion on the left. 2. Mediastinal drain and left chest tube remain in place. No pneumothorax. 3. Left subclavian line could be arterial, called to the floor nurse. 4. Endotracheal tube out. Antonino Lacy MD on February 24, 2017 at 6:15 Board Certified Radiologist. This report was verified electronically.
[2017-02-24] MEDS: CLOPIDOGREL 75 MG TAB PO SCH (08:12)
[2017-02-24] MEDS: ASPIRIN 81 MG CHEW TAB PO SCH (08:13)
[2017-02-24] MEDS: SODIUM CHLORIDE 0.9% FLUSH 10 ML FLUSH IV FLUSH SCH ×2 (08:13→21:02)
[2017-02-24] MEDS: AMIODARONE 200 MG TAB PO SCH ×2 (08:13→21:01)
[2017-02-24] MEDS ORDERED: DEXTROSE 50% IN WATER 50 ML VIAL(D50) IV PRN (09:30)
[2017-02-24] MEDS ORDERED: BISACODYL 10 MG SUPP RECTAL PRN (09:30)
[2017-02-24] MEDS ORDERED: FUROSEMIDE 20 MG/2 ML VIAL IV PUSH ONE (09:30)
[2017-02-24] MEDS ORDERED: SOD PHOSPHATE/SOD BIPHOSPHATE (ADULT) ENEMA 133ML RECTAL PRN (09:30)
[2017-02-24] MEDS ORDERED: GLUCAGON 1 MG/ML VIAL OTHER PRN (09:30)
[2017-02-24] MEDS ORDERED: POTASSIUM CHLORIDE 10 MEQ CAP PO ONE (09:30)
[2017-02-24] MEDS: CARVEDILOL 3.125 MG TAB PO SCH ×2 (09:50→21:02)
[2017-02-24] MEDS: DOCUSATE SODIUM 100 MG CAP PO SCH ×2 (09:51→21:01)
[2017-02-24] MEDS: INSULIN ASPART SUPPLEMENTAL SCALE SQ SCH ×4 (10:08→21:28)
--- NOTE | 2017-02-24 10:09 | EKG ---
Date Performed: 02/24/2017 Time Performed: 04:16:16 PTAGE: 76 years EKG: Sinus rhythm with borderline 1st degree A-V block Leftward axis Right bundle branch block Inferior infarct - age undetermined QRS changes V3/V4 may be due to LVH but cannot rule out anterior infarct Low QRS voltage s in precordial leads Abnormal ECG NO PREVIOUS TRACING DOCTOR: Samuel Briseno Interpretating Date/Time 02/24/2017 10:08:14
[2017-02-24] MEDS: FERROUS SULFATE 325 MG (65 MG ELEMENTAL IRON) TAB PO SCH ×2 (12:40→17:58)
[2017-02-24] MEDS: RESP: ALBUTEROL 2.5 MG/IPRATROPIUM 0.5 MG NEB (SCH) NEB ×2 (13:45→19:22)
--- NOTE | 2017-02-24 16:02 | HHI.FF ---
Face to Face Verification Diagnosis: (1) Coronary artery disease (2) S/P CABG x 2 (3) Diabetes mellitus (4) Hyperlipemia (5) Hypertension (6) PAD (peripheral artery disease) Home Health Nursing Order: Signs/symptoms of disease process Medication education-adverse effect Wound care and dressing changes Nursing assessment with vital signs Instructions: Heart and Vascular Surgery patients *Special attention to sternal dressing Mandatory frequency Assess and evaluation, 4 days in a row The next week 3X week 2 times a week for 4 weeks 1 time a week for 5 weeks Schedule Heart and Vascular patients for full 60 day certification period Initial visit Review Open Heart Surgery Discharge Instructions (Sternal precautions, Activity, Elastic hose, Incision care, Driving, Incentive spirometry, Smoking, [place], Work and other) Need Betadine to paint incision Medication reconciliation Importance of follow up care/ check on appointments Make calendar record temperature daily When to call [facility] nurse, review instructions, phone list Incentive Spirometry, demonstration Visit 1- Begin discharge instruction for patient family and/ or caregiver using teach back method- Signs and symptoms of infection Disease characteristics Medicines and side effects Foods and nutrition/ appetite Infection control/ hand washing/ hygiene Visit 2- Continue teaching Discharge instructions- include additional information on smoking cessation , sternal dressing (sternal vac) Visit 3- Continue teaching- Cough and deep breathing, incision monitoring. Choose my plate Visit 4- Continue teaching- Discuss limitations Discuss how they are feeling Discuss progress toward goals Remaining visits- continue teaching and monitoring PREVENA Single Use Negative Wound Therapy System Caregiver Instruction Sheet 1. A Prevena dressing system was applied to the chest incision during surgery , to promote wound healing. It works via a suction device (negative pressure wound therapy) to remove low to moderate levels of exudate (drainage) and infectious materials. We recommend that the device stay in place for up to seven days, from day of surgery. 2. Day of Surgery___02/23/17 Day of Removal ____03/02/17 3. The dressing should only be removed by a health daycare director. Please arrange removal of device to coincide with Home Health visit and or with Nursing staff at Rehab 4. If skin reddening or irritation of skin occurs, or excessive drainage, please notify the Cardiovascular Surgeons office at [phone]. 5. Light showering is permissible; however the pump should be disconnected and placed in safe location, where it will not get wet. The dressing should not be exposed to direct spray or submerged in water. No bath tub / shower only. Ensure the end of the tubing attached to the dressing is facing down so that water does not enter the top of the tube. 6. To remove Prevena dressing: press purple button to turn off device / remove the suction. Then disconnect the tubing from the pump. The fixation strips should be stretched away from the skin and the dressing lifted at one corner and peeled back until it has been fully removed. 7. After removal, it is ok to shower daily using liquid dial soap and clean wash cloth, rinse and pat dry, and leave incision open to air dry. For any concerns regarding Prevena dressing, and or wounds, please contact Zulma Neves, patient navigator at [phone] or notify the Cardiovascular Surgeons office at [phone]. Incentive spirometry Q1 hr x 10, while awake, also use acapella device hourly whole awake Sternal Breast Bone Precautions: NO pushing or pulling, ( pt must use sternal pillow to support chest with all activities and with coughing ( takes up to 3 months breast bone to heal ) Daily incision care: ok to shower daily, no tub bath. Wash all incisions with liquid dial soap, clean wash cloth to each site, rinse and pat dry. Observe for any signs of infection, such as drainage which is dark yellow, canas, green or foul smelling. Immediately report to the surgeon any drainage from the chest incision, or legs, and for any abnormal drainage from the chest tube sites. Notify surgeon if any temp >101.5 degrees F. When specialty dressing removed/ or if you do not have one, continue to shower daily as above, then rinse and pat incision dry and paint with betadine daily x 5 days. Allow steri strips to fall off if you have any. Avoid lotions, creams, salves, oils, etc. for the first month Please see attached forms for additional instructions regarding post Open Heart specialty wound vacuum dressings. ZEKE or Prevena , Dressing to be removed by Nursing staff on __03/02/17 F/U appointment: as per DC instructions: PCP in 2 weeks, CV surgeon 2 weeks, Employee Relations Director 3-4 weeks For any questions regarding incisions/ dressing / meds / post op care or above Symptoms, Monday 8am-5pm Heart & Vascular Surgery Office ( Dr. Guadalupe & Dr. Stringer), After Hours / Nights (5pm -8am) Weekends and Holidays Please call [facility] Card[facility] Unit (CIC) Charge Nurse I have seen patient Jesús Rizoroxanne He Jr on 02/24/17. My clinical findings support the need for the requested home health care services because: Deconditioned w/ increased weakness I certify that my clinical findings support that this patient is homebound because: Post-op weakness Melissa Smith Feb 24, 2017 16:02
--- NOTE | 2017-02-24 16:08 | PD.CAR.PN ---
CVT Progress Note CVT: POD #: 1 Subjective/Hospital Course: 76/ male c/o of chest and abdominal pain after a large meal/ recently passed stress test, returned from a recent trip to [place] had noted chest tightness when walking , + SOB underwent cardiac cath by Dr Loja 50% Left main, 90% LAD, 75% diagonal and 99 % RCA EF 60% PMH: CAD, HTN, HLP , PAD surgery : 02/23 Off-pump Coronary Artery Bypass Grafting x 3 with left internal mammary artery (KENNEDY) to Diagonal ! (D1), reverse saphenous vein graft to the OM1, reverse saphenous vein graft to the RPDA Transmyocardial Laser Revascularization (Anterior wall - 14 channels) Left Leg Endoscopic Vein [place] Intraoperative Vein Mapping. 3000cc crystalloid , 450cell saver 02/24 extubated after surgery on nasal cannula HGB 7.7/ start ferrous sulfate / recheck H&H in am ECG noted, no change from preop start low dose BB, gentle diuresis transfer to stepdown unit Objective: GENERAL: SKIN: Warm and dry.prevena dressing to chest , riley wrap to left leg HEAD: Normocephalic. EYES: No scleral icterus. No injection or drainage. NECK: Supple, trachea midline. No JVD or lymphadenopathy. CARDIOVASCULAR: Regular rate and rhythm without murmurs, gallops, or rubs. RESPIRATORY: few basilar crackles Breath sounds equal bilaterally. No accessory muscle use. chest tube to wall suction, no air leak / drained 440cc/ 12 hrs GASTROINTESTINAL: Abdomen soft, non-tender, nondistended. MUSCULOSKELETAL: No cyanosis, or edema. BACK: Nontender without obvious deformity. No CVA tenderness. Vital Signs Date Time Temp Pulse Resp B/P Pulse Ox O2 Delivery O2 Flow Rate FiO2 02/24/17 13:56 16 02/24/17 11:43 95 Room Air 02/24/17 11:32 98.4 75 16 115/65 96 02/24/17 11:00 81 02/24/17 11:00 76 02/24/17 10:00 111/64 02/24/17 09:27 97 Nasal Cannula 2.00 02/24/17 08:37 97 Nasal Cannula 2.00 02/24/17 07:37 98.3 74 16 115/55 97 102/58 02/24/17 07:15 71 02/24/17 04:00 98 Nasal Cannula 2.00 02/24/17 03:00 98.6 67 16 113/51 98 02/24/17 03:00 69 02/24/17 00:00 97 Nasal Cannula 2.00 02/23/17 23:00 63 02/23/17 23:00 98.4 61 18 99/49 98 02/23/17 20:00 99 Nasal Cannula 2.00 02/23/17 20:00 60 02/23/17 19:30 97.6 60 16 118/54 99 02/23/17 18:25 94 Nasal Cannula 4 02/23/17 18:16 58 02/23/17 18:15 35 02/23/17 18:10 96 Mechanical Ventilator 50 02/23/17 18:04 97.2 58 14 88/53 96 02/23/17 18:00 94 40 Labs: Laboratory Tests Test 02/24/17 04:45 White Blood Count 12.6 TH/MM3 (4.0-11.0) Red Blood Count 2.67 MIL/MM3 (4.50-5.90) Hemoglobin 7.7 GM/DL (13.0-17.0) Hematocrit 23.1 % (39.0-51.0) Mean Corpuscular Volume 86.3 FL (80.0-100.0) Mean Corpuscular Hemoglobin 28.8 PG (27.0-34.0) Mean Corpuscular Hemoglobin 33.3 % Concent (32.0-36.0) Red Cell Distribution Width 15.2 % (11.6-17.2) Platelet Count 103 TH/MM3 (150-450) Mean Platelet Volume 7.5 FL (7.0-11.0) Sodium Level 134 MEQ/L (136-145) Potassium Level 4.4 MEQ/L (3.5-5.1) Chloride Level 102 MEQ/L (98-107) Carbon Dioxide Level 23.3 MEQ/L (21.0-32.0) Anion Gap 9 MEQ/L (5-15) Blood Urea Nitrogen 16 MG/DL (7-18) Creatinine 0.77 MG/DL (0.60-1.30) Estimat Glomerular Filtration 99 ML/MIN (>89) Rate Random Glucose 86 MG/DL (74-106) Calcium Level 7.3 MG/DL (8.5-10.1) Protein Corrected Calcium 8.7 MG/DL (8.5-10.1) Magnesium Level 2.1 MG/DL (1.5-2.5) Total Protein 4.7 GM/DL (6.4-8.2) Result Diagram: 02/24/1744402/24/17444 Telemetry: NSR (1) Coronary artery disease (2) S/P CABG x 2 Plan: ASA, plavix, statin , BB , amiodarone gentle diuresis pulm toileting nebs, ezpap , acapella OOB ambualte CM to eval for C (3) Diabetes mellitus Plan: resume oral meds this pm/ HGB A1C 5.7 on insulin at home / BP too low to resume long acting at this time (4) Hyperlipemia Plan: statin , heart healthy diet (5) Hypertension Plan: controlled (6) PAD (peripheral artery disease) (7) Blood loss anemia Plan: HGB 7.7/ start ferrous sulfate recheck in Melissa Zimmerman Feb 24, 2017 16:08
[2017-02-24] MEDS: metFORMIN HCL 500 MG TAB PO SCH (17:58)
[2017-02-24] MEDS: SENNOSIDES 8.6 MG TAB PO SCH (21:01)
[2017-02-24] MEDS: ATORVASTATIN 40 MG TAB PO SCH (21:02)
[2017-02-25] VITALS (28 sets, daily range): BP systolic 111–143; BP diastolic 65–76; PULSE 78–108; RESP 16–19; TEMP 98–99.7; O2SAT 92–97
[2017-02-25] MEDS: INSULIN ASPART SUPPLEMENTAL SCALE SQ SCH ×5 (02:00→21:00)
[2017-02-25] MEDS: ceFAZolin 2 GM PREMIX 50 ML IV SCH (05:46)
[2017-02-25] MEDS: PANTOPRAZOLE SOD 40 MG DELAYED RELEASE TAB PO SCH (05:46)
[2017-02-25] MEDS: ACETAMINOPHEN/HYDROcodone 325 MG/5 MG TAB PO PRN ×3 (05:49→16:19)
[2017-02-25 06:11] LABS: AUTOMATED NEUTROPHIL # 6.8 TH/MM3 (1.8-7.7); BASOPHIL % 0.1 % (0.0-2.0); EOSINOPHIL # 0.1 TH/MM3 (0-0.4); EOSINOPHIL % 0.6 % (0.0-4.0); HEMATOCRIT 21.4 % (39.0-51.0); LYMPH % 42.3 % (9.0-44.0); LYMPHOCYTE # 5.9 TH/MM3 (1.0-4.8); MEAN CORPUSCULAR HEMOGLOBIN 28.8 PG (27.0-34.0); MEAN CORPUSCULAR HGB CONC 33.5 % (32.0-36.0); PLATELET COUNT 106 TH/MM3 (150-450); RED BLOOD COUNT 2.48 MIL/MM3 (4.50-5.90); RED CELL DISTRIBUTION WIDTH 15.7 % (11.6-17.2)
[2017-02-25 06:27] LABS: HEMO FLAGS AUTO DIFF
[2017-02-25 06:58] LABS: BICARBONATE 24.7 MEQ/L (21.0-32.0); POTASSIUM 3.9 MEQ/L (3.5-5.1)
[2017-02-25 07:14] LABS: CALCIUM-PROTEIN CORRECTED 8.4 MG/DL (8.5-10.1)
[2017-02-25] MEDS: RESP: ALBUTEROL 2.5 MG/IPRATROPIUM 0.5 MG NEB (SCH) NEB ×3 (08:00→20:21)
[2017-02-25] MEDS: POLYETHYLENE GLYCOL 17 GM PKG PO SCH (08:31)
[2017-02-25] MEDS: MAGNESIUM HYDROXIDE SUSP 30 ML CUP PO SCH (08:31)
[2017-02-25] MEDS: glyBURIDE 5 MG TAB PO SCH ×2 (08:32→21:14)
[2017-02-25] MEDS: AMIODARONE 200 MG TAB PO SCH ×2 (08:32→21:13)
[2017-02-25] MEDS: metFORMIN HCL 500 MG TAB PO SCH ×2 (08:32→17:02)
[2017-02-25] MEDS: ASPIRIN 81 MG CHEW TAB PO SCH (08:32)
[2017-02-25] MEDS: SODIUM CHLORIDE 0.9% FLUSH 10 ML FLUSH IV FLUSH SCH ×2 (08:33→21:19)
[2017-02-25] MEDS: CARVEDILOL 3.125 MG TAB PO SCH ×2 (08:33→21:13)
[2017-02-25] MEDS: MULTIVITAMINS/MINERALS THERAPEUTIC TAB PO SCH (08:33)
[2017-02-25] MEDS: ALLOPURINOL 100 MG TAB PO SCH (08:33)
[2017-02-25] MEDS: DOCUSATE SODIUM 100 MG CAP PO SCH ×2 (08:33→21:13)
[2017-02-25] MEDS: CLOPIDOGREL 75 MG TAB PO SCH (08:33)
[2017-02-25 08:37] LABS: BANDS 2 % (0-6); EOSINOPHILS 1 % (0-4); NEUTROPHIL # MANUAL DIFF 5.6 TH/MM3 (1.8-7.7); POLYS (SEG NEUTROPHILS) 38 % (16-70); WBC DIFF SAMPLE 100
[2017-02-25 08:38] LABS: OVALOCYTES 1+ (NORMAL)
[2017-02-25 08:39] LABS: PLATELET ESTIMATE SMEAR LOW (NORMAL); PLATELET MORPHOLOGY NORMAL (NORMAL); SCAN/DIFF FINAL DIFF MANUAL; SMUDGE CELLS PRESENT PRESENT
--- NOTE | 2017-02-25 09:48 | PD.CAR.PN ---
CVT Progress Note Subjective/Hospital Course: 76/ male c/o of chest and abdominal pain after a large meal/ recently passed stress test, returned from a recent trip to [place] had noted chest tightness when walking , + SOB underwent cardiac cath by Dr Loja 50% Left main, 90% LAD, 75% diagonal and 99 % RCA EF 60% PMH: CAD, HTN, HLP , PAD surgery : 02/23 Off-pump Coronary Artery Bypass Grafting x 3 with left internal mammary artery (KENNEDY) to Diagonal ! (D1), reverse saphenous vein graft to the OM1, reverse saphenous vein graft to the RPDA Transmyocardial Laser Revascularization (Anterior wall - 14 channels) Left Leg Endoscopic Vein [place] Intraoperative Vein Mapping. 3000cc crystalloid , 450cell saver 02/24 extubated after surgery on nasal cannula HGB 7.7/ start ferrous sulfate / recheck H&H in am ECG noted, no change from preop start low dose BB, gentle diuresis transfer to stepdown unit 02/25 Doing well Monitoring Hgb Maintain CT until tomorrow Increase beta lucrecia Objective: Vital Signs Date Time Temp Pulse Resp B/P Pulse Ox O2 Delivery O2 Flow Rate FiO2 02/25/17 08:24 97 Nasal Cannula 2.00 02/25/17 07:00 98.7 91 19 137/65 95 02/25/17 07:00 94 Nasal Cannula 1.00 02/25/17 07:00 81 02/25/17 06:00 88 02/25/17 05:30 Nasal Cannula 2.00 02/25/17 05:00 78 02/25/17 04:14 98.0 97 16 135/72 95 02/25/17 04:00 88 02/25/17 03:05 94 Room Air 02/25/17 02:52 90 02/25/17 02:00 98 02/25/17 01:00 98 02/25/17 00:00 96 02/25/17 00:00 94 Room Air 02/24/17 23:05 98.3 94 16 131/68 93 02/24/17 23:00 90 02/24/17 22:01 19 02/24/17 22:00 92 02/24/17 21:00 92 02/24/17 20:00 90 02/24/17 19:42 98.3 76 16 131/73 94 02/24/17 19:40 94 Room Air 02/24/17 19:22 93 21 02/24/17 19:00 90 02/24/17 17:00 78 02/24/17 16:00 84 02/24/17 15:30 90 02/24/17 15:15 94 Room Air 02/24/17 15:15 83 17 131/65 94 02/24/17 13:56 16 02/24/17 11:43 95 Room Air 02/24/17 11:32 98.4 75 16 115/65 96 02/24/17 11:00 81 02/24/17 11:00 76 02/24/17 10:00 111/64 Labs: Laboratory Tests Test 02/25/17 05:36 White Blood Count 14.0 TH/MM3 (4.0-11.0) Red Blood Count 2.48 MIL/MM3 (4.50-5.90) Hemoglobin 7.2 GM/DL (13.0-17.0) Hematocrit 21.4 % (39.0-51.0) Mean Corpuscular Volume 86.0 FL (80.0-100.0) Mean Corpuscular Hemoglobin 28.8 PG (27.0-34.0) Mean Corpuscular Hemoglobin 33.5 % Concent (32.0-36.0) Red Cell Distribution Width 15.7 % (11.6-17.2) Platelet Count 106 TH/MM3 (150-450) Mean Platelet Volume 7.3 FL (7.0-11.0) Neutrophils (%) (Auto) 49.0 % (16.0-70.0) Lymphocytes (%) (Auto) 42.3 % (9.0-44.0) Monocytes (%) (Auto) 8.0 % (0.0-8.0) Eosinophils (%) (Auto) 0.6 % (0.0-4.0) Basophils (%) (Auto) 0.1 % (0.0-2.0) Neutrophils # (Auto) 6.8 TH/MM3 (1.8-7.7) Lymphocytes # (Auto) 5.9 TH/MM3 (1.0-4.8) Monocytes # (Auto) 1.1 TH/MM3 (0-0.9) Eosinophils # (Auto) 0.1 TH/MM3 (0-0.4) Basophils # (Auto) 0.0 TH/MM3 (0-0.2) CBC Comment AUTO DIFF Differential Total Cells 100 Counted Neutrophils % (Manual) 38 % (16-70) Band Neutrophils % 2 % (0-6) Lymphocytes % 52 % (9-44) Monocytes % 7 % (0-8) Eosinophils % 1 % (0-4) Neutrophils # (Manual) 5.6 TH/MM3 (1.8-7.7) Differential Comment FINAL DIFF MANUAL Smudge Cells PRESENT Platelet Estimate LOW (NORMAL) Platelet Morphology Comment NORMAL (NORMAL) Ovalocytes 1+ (NORMAL) Sodium Level 126 MEQ/L (136-145) Potassium Level 3.9 MEQ/L (3.5-5.1) Chloride Level 93 MEQ/L (98-107) Carbon Dioxide Level 24.7 MEQ/L (21.0-32.0) Anion Gap 8 MEQ/L (5-15) Blood Urea Nitrogen 15 MG/DL (7-18) Creatinine 0.73 MG/DL (0.60-1.30) Estimat Glomerular Filtration 105 ML/MIN Rate (>89) Random Glucose 109 MG/DL (74-106) Calcium Level 7.3 MG/DL (8.5-10.1) Protein Corrected Calcium 8.4 MG/DL (8.5-10.1) Magnesium Level 2.0 MG/DL (1.5-2.5) Total Protein 5.1 GM/DL (6.4-8.2) Result Diagram: 02/25/17 0536 02/25/17 0536 (1) Coronary artery disease (2) S/P CABG x 2 Plan: ASA, plavix, statin , BB , amiodarone gentle diuresis pulm toileting nebs, ezpap , acapella OOB ambualte CM to eval for [facility] (3) Diabetes mellitus Plan: resume oral meds this pm/ HGB A1C 5.7 on insulin at home / BP too low to resume long acting at this time (4) Hyperlipemia Plan: statin , heart healthy diet (5) Hypertension Plan: controlled (6) PAD (peripheral artery disease) (7) Blood loss anemia Plan: HGB 7.7/ start ferrous sulfate recheck in am Izaiah Guadalupe MD Feb 25, 2017 09:48
[2017-02-25] MEDS ORDERED: CARVEDILOL 3.125 MG TAB PO ONE (10:30)
[2017-02-25] MEDS: FERROUS SULFATE 325 MG (65 MG ELEMENTAL IRON) TAB PO SCH ×2 (12:18→17:02)
[2017-02-25] MEDS: SENNOSIDES 8.6 MG TAB PO SCH (21:13)
[2017-02-25] MEDS: ATORVASTATIN 40 MG TAB PO SCH (21:13)
[2017-02-26] VITALS (24 sets, daily range): BP systolic 125–153; BP diastolic 67–80; PULSE 66–97; RESP 18; TEMP 98.2–98.9; O2SAT 93–97
[2017-02-26] MEDS: ACETAMINOPHEN/HYDROcodone 325 MG/5 MG TAB PO PRN ×2 (00:48→09:58)
[2017-02-26] MEDS: INSULIN ASPART SUPPLEMENTAL SCALE SQ SCH ×4 (05:48→21:34)
[2017-02-26] MEDS: PANTOPRAZOLE SOD 40 MG DELAYED RELEASE TAB PO SCH (05:48)
[2017-02-26 07:24] LABS: HEMATOCRIT 21.4 % (39.0-51.0); MEAN CELL VOLUME 85.9 FL (80.0-100.0); MEAN CORPUSCULAR HEMOGLOBIN 29.1 PG (27.0-34.0); MEAN CORPUSCULAR HGB CONC 33.8 % (32.0-36.0); PLATELET COUNT 120 TH/MM3 (150-450); RED BLOOD COUNT 2.49 MIL/MM3 (4.50-5.90); RED CELL DISTRIBUTION WIDTH 15.4 % (11.6-17.2); REVIEW FLAG FINAL; WHITE BLOOD COUNT 15.5 TH/MM3 (4.0-11.0)
[2017-02-26] MEDS: RESP: ALBUTEROL 2.5 MG/IPRATROPIUM 0.5 MG NEB (SCH) NEB (07:52)
[2017-02-26] MEDS: ASPIRIN 81 MG CHEW TAB PO SCH (09:49)
[2017-02-26] MEDS: CARVEDILOL 3.125 MG TAB PO SCH ×2 (09:49→21:34)
[2017-02-26] MEDS: MULTIVITAMINS/MINERALS THERAPEUTIC TAB PO SCH (09:49)
--- NOTE | 2017-02-26 09:49 | PD.CAR.PN ---
CVT Progress Note Subjective/Hospital Course: 76/ male c/o of chest and abdominal pain after a large meal/ recently passed stress test, returned from a recent trip to [place] had noted chest tightness when walking , + SOB underwent cardiac cath by Dr Loja 50% Left main, 90% LAD, 75% diagonal and 99 % RCA EF 60% PMH: CAD, HTN, HLP , PAD surgery : 02/23 Off-pump Coronary Artery Bypass Grafting x 3 with left internal mammary artery (KENNEDY) to Diagonal ! (D1), reverse saphenous vein graft to the OM1, reverse saphenous vein graft to the RPDA Transmyocardial Laser Revascularization (Anterior wall - 14 channels) Left Leg Endoscopic Vein [place] Intraoperative Vein Mapping. 3000cc crystalloid , 450cell saver 02/24 extubated after surgery on nasal cannula HGB 7.7/ start ferrous sulfate / recheck H&H in am ECG noted, no change from preop start low dose BB, gentle diuresis transfer to stepdown unit 02/25 Doing well Monitoring Hgb Maintain CT until tomorrow Increase beta lucrecia 02/26 Doing well D/C CT Pulmonary toiletry Objective: Vital Signs Date Time Temp Pulse Resp B/P Pulse Ox O2 Delivery O2 Flow Rate FiO2 02/26/17 07:52 96 21 02/26/17 07:48 98.7 69 18 125/67 94 02/26/17 03:20 98.7 70 18 141/68 93 02/26/17 03:20 93 Room Air 02/26/17 03:00 88 02/25/17 23:45 99.2 90 18 111/65 93 02/25/17 23:45 93 Room Air 02/25/17 23:00 80 02/25/17 20:21 93 21 02/25/17 19:50 93 Room Air 02/25/17 19:50 99.4 94 18 126/69 93 02/25/17 19:00 88 02/25/17 18:21 99 02/25/17 17:00 96 02/25/17 16:08 102 02/25/17 15:15 93 Room Air 02/25/17 15:15 99.7 98 143/69 92 02/25/17 15:00 89 02/25/17 14:00 94 02/25/17 13:00 84 02/25/17 12:00 96 02/25/17 11:30 99.2 95 143/76 93 02/25/17 11:30 93 Room Air 02/25/17 11:00 92 02/25/17 10:00 92 Labs: Laboratory Tests Test 02/26/17 04:55 White Blood Count 15.5 TH/MM3 (4.0-11.0) Red Blood Count 2.49 MIL/MM3 (4.50-5.90) Hemoglobin 7.2 GM/DL (13.0-17.0) Hematocrit 21.4 % (39.0-51.0) Mean Corpuscular Volume 85.9 FL (80.0-100.0) Mean Corpuscular Hemoglobin 29.1 PG (27.0-34.0) Mean Corpuscular Hemoglobin 33.8 % Concent (32.0-36.0) Red Cell Distribution Width 15.4 % (11.6-17.2) Platelet Count 120 TH/MM3 (150-450) Mean Platelet Volume 7.8 FL (7.0-11.0) Result Diagram: 02/26/17 0455 02/25/17 0536 (1) Coronary artery disease (2) S/P CABG x 2 Plan: ASA, plavix, statin , BB , amiodarone gentle diuresis pulm toileting nebs, ezpap , acapella OOB ambualte CM to eval for [facility] (3) Diabetes mellitus Plan: resume oral meds this pm/ HGB A1C 5.7 on insulin at home / BP too low to resume long acting at this time (4) Hyperlipemia Plan: statin , heart healthy diet (5) Hypertension Plan: controlled (6) PAD (peripheral artery disease) (7) Blood loss anemia Plan: HGB 7.7/ start ferrous sulfate recheck in am Izaiah Guadalupe MD Feb 26, 2017 09:49
[2017-02-26] MEDS: CLOPIDOGREL 75 MG TAB PO SCH (09:50)
[2017-02-26] MEDS: ALLOPURINOL 100 MG TAB PO SCH (09:50)
[2017-02-26] MEDS: POLYETHYLENE GLYCOL 17 GM PKG PO SCH (09:50)
[2017-02-26] MEDS: metFORMIN HCL 500 MG TAB PO SCH ×2 (09:50→17:35)
[2017-02-26] MEDS: DOCUSATE SODIUM 100 MG CAP PO SCH ×2 (09:50→21:36)
[2017-02-26] MEDS: glyBURIDE 5 MG TAB PO SCH ×2 (09:50→21:35)
[2017-02-26] MEDS: MAGNESIUM HYDROXIDE SUSP 30 ML CUP PO SCH (09:50)
[2017-02-26] MEDS: SODIUM CHLORIDE 0.9% FLUSH 10 ML FLUSH IV FLUSH SCH ×2 (09:59→21:36)
[2017-02-26] MEDS: AMIODARONE 200 MG TAB PO SCH ×2 (10:01→21:35)
[2017-02-26] MEDS: FERROUS SULFATE 325 MG (65 MG ELEMENTAL IRON) TAB PO SCH ×2 (11:34→17:34)
[2017-02-26] MEDS ORDERED: FUROSEMIDE 20 MG/2 ML VIAL IV PUSH PRN (18:45)
[2017-02-26] MEDS: SENNOSIDES 8.6 MG TAB PO SCH (21:35)
[2017-02-26] MEDS: ATORVASTATIN 40 MG TAB PO SCH (21:35)
[2017-02-27] VITALS (26 sets, daily range): BP systolic 130–150; BP diastolic 71–80; PULSE 62–88; RESP 16–18; TEMP 98.3–98.9; O2SAT 93–98
[2017-02-27] MEDS ORDERED: FUROSEMIDE 20 MG/2 ML VIAL IV PUSH ONE ×2 (00:30→14:30)
[2017-02-27] MEDS: INSULIN ASPART SUPPLEMENTAL SCALE SQ SCH ×4 (06:23→21:00)
[2017-02-27] MEDS: PANTOPRAZOLE SOD 40 MG DELAYED RELEASE TAB PO SCH (06:23)
[2017-02-27] MEDS: SODIUM CHLORIDE 0.9% FLUSH 10 ML FLUSH IV FLUSH SCH ×2 (09:00→21:44)
[2017-02-27] MEDS: MAGNESIUM HYDROXIDE SUSP 30 ML CUP PO SCH (09:24)
[2017-02-27] MEDS: glyBURIDE 5 MG TAB PO SCH ×2 (09:24→21:43)
[2017-02-27] MEDS: POLYETHYLENE GLYCOL 17 GM PKG PO SCH (09:24)
[2017-02-27] MEDS: DOCUSATE SODIUM 100 MG CAP PO SCH ×2 (09:25→21:00)
[2017-02-27] MEDS: metFORMIN HCL 500 MG TAB PO SCH ×2 (09:25→17:08)
[2017-02-27] MEDS: ALLOPURINOL 100 MG TAB PO SCH (09:25)
[2017-02-27] MEDS: CLOPIDOGREL 75 MG TAB PO SCH (09:25)
[2017-02-27] MEDS: MULTIVITAMINS/MINERALS THERAPEUTIC TAB PO SCH (09:25)
[2017-02-27] MEDS: CARVEDILOL 3.125 MG TAB PO SCH ×2 (09:25→21:43)
[2017-02-27] MEDS: ASPIRIN 81 MG CHEW TAB PO SCH (09:26)
[2017-02-27] MEDS: AMIODARONE 200 MG TAB PO SCH ×2 (09:26→21:43)
[2017-02-27] MEDS: ENALAPRIL MALEATE 10 MG TAB PO SCH (09:36)
[2017-02-27 09:40] LABS: AUTOMATED NEUTROPHIL # 8.1 TH/MM3 (1.8-7.7); BASOPHIL % 0.1 % (0.0-2.0); EOSINOPHIL # 0.2 TH/MM3 (0-0.4); EOSINOPHIL % 1.1 % (0.0-4.0); HEMATOCRIT 26.3 % (39.0-51.0); LYMPH % 43.7 % (9.0-44.0); LYMPHOCYTE # 7.4 TH/MM3 (1.0-4.8); MEAN CELL VOLUME 83.4 FL (80.0-100.0); MEAN CORPUSCULAR HEMOGLOBIN 28.8 PG (27.0-34.0); MEAN CORPUSCULAR HGB CONC 34.6 % (32.0-36.0); MONO % 7.6 % (0.0-8.0); NEUT % 47.5 % (16.0-70.0); PLATELET COUNT 159 TH/MM3 (150-450); RED BLOOD COUNT 3.16 MIL/MM3 (4.50-5.90); RED CELL DISTRIBUTION WIDTH 15.3 % (11.6-17.2)
[2017-02-27 09:42] LABS: HEMO FLAGS AUTO DIFF
[2017-02-27] MEDS ORDERED: BISACODYL 10 MG SUPP RECTAL PRN (10:15)
[2017-02-27 10:47] LABS: EOSINOPHILS 1 % (0-4); NEUTROPHIL # MANUAL DIFF 6.1 TH/MM3 (1.8-7.7); POLYS (SEG NEUTROPHILS) 36 % (16-70); SMUDGE CELLS PRESENT PRESENT; WBC DIFF SAMPLE 100
[2017-02-27 10:49] LABS: SCAN/DIFF FINAL DIFF MANUAL
[2017-02-27] MEDS: FERROUS SULFATE 325 MG (65 MG ELEMENTAL IRON) TAB PO SCH ×2 (11:14→17:08)
--- NOTE | 2017-02-27 11:29 | PD.CAR.PN ---
CVT Progress Note CVT: POD #: 4 Subjective/Hospital Course: 76/ male c/o of chest and abdominal pain after a large meal/ recently passed stress test, returned from a recent trip to [place] had noted chest tightness when walking , + SOB underwent cardiac cath by Dr Loja 50% Left main, 90% LAD, 75% diagonal and 99 % RCA EF 60% PMH: CAD, HTN, HLP , PAD surgery : 02/23 Off-pump Coronary Artery Bypass Grafting x 3 with left internal mammary artery (KENNEDY) to Diagonal ! (D1), reverse saphenous vein graft to the OM1, reverse saphenous vein graft to the RPDA Transmyocardial Laser Revascularization (Anterior wall - 14 channels) Left Leg Endoscopic Vein [place] Intraoperative Vein Mapping. 3000cc crystalloid , 450cell saver 02/24 extubated after surgery on nasal cannula HGB 7.7/ start ferrous sulfate / recheck H&H in am ECG noted, no change from preop start low dose BB, gentle diuresis transfer to stepdown unit 02/25 Doing well Monitoring Hgb Maintain CT until tomorrow Increase beta lucrecia 02/26 Doing well D/C CT Pulmonary toiletry 02/27 f/u cxr results, WBC now 17K, check UA , no CVC line reorder ezpap acapella no BM since surgery, give supp/ enema recheck lab in am family and pt wanting now to go to rehab Objective: GENERAL: SKIN: Warm and dry.prevena to chest, incision intact left leg, + ecchymosis and swelling HEAD: Normocephalic. EYES: No scleral icterus. No injection or drainage. NECK: Supple, trachea midline. No JVD or lymphadenopathy. CARDIOVASCULAR: Regular rate and rhythm without murmurs, gallops, or rubs. RESPIRATORY: Breath sounds equal bilaterally. No accessory muscle use. GASTROINTESTINAL: Abdomen soft, non-tender, nondistended. MUSCULOSKELETAL: No cyanosis, or edema. BACK: Nontender without obvious deformity. No CVA tenderness. Vital Signs Date Time Temp Pulse Resp B/P Pulse Ox O2 Delivery O2 Flow Rate FiO2 02/27/17 10:10 80 02/27/17 09:00 88 02/27/17 08:07 93 21 02/27/17 08:00 76 02/27/17 07:00 94 Room Air 02/27/17 07:00 98.6 82 16 150/80 94 02/27/17 07:00 72 02/27/17 05:00 80 02/27/17 04:20 98 Room Air 02/27/17 04:15 98.6 82 18 148/80 97 02/27/17 04:00 82 02/27/17 03:00 80 02/27/17 02:00 79 02/27/17 01:00 98.8 80 18 131/71 95 02/27/17 01:00 77 02/27/17 00:30 98.7 83 18 146/78 95 02/27/17 00:30 96 Room Air 02/27/17 00:30 98.3 83 18 146/78 96 02/27/17 00:00 69 02/26/17 23:00 82 02/26/17 22:30 98.8 84 18 145/80 94 02/26/17 22:15 98.8 82 18 145/78 95 02/26/17 22:00 84 02/26/17 22:00 98.2 85 18 153/78 94 02/26/17 21:00 80 02/26/17 20:30 96 Room Air 02/26/17 20:00 83 02/26/17 20:00 98.9 83 18 131/78 96 02/26/17 19:00 73 02/26/17 18:14 73 02/26/17 17:00 80 02/26/17 16:32 80 02/26/17 15:30 94 Room Air 02/26/17 15:00 98.3 80 18 129/67 97 02/26/17 15:00 75 02/26/17 14:00 78 02/26/17 13:32 75 02/26/17 12:25 89 02/26/17 11:30 93 Room Air Labs: Laboratory Tests Test 02/27/17 08:45 White Blood Count 17.0 TH/MM3 (4.0-11.0) Red Blood Count 3.16 MIL/MM3 (4.50-5.90) Hemoglobin 9.1 GM/DL (13.0-17.0) Hematocrit 26.3 % (39.0-51.0) Mean Corpuscular Volume 83.4 FL (80.0-100.0) Mean Corpuscular Hemoglobin 28.8 PG (27.0-34.0) Mean Corpuscular Hemoglobin 34.6 % Concent (32.0-36.0) Red Cell Distribution Width 15.3 % (11.6-17.2) Platelet Count 159 TH/MM3 (150-450) Mean Platelet Volume 7.5 FL (7.0-11.0) Neutrophils (%) (Auto) 47.5 % (16.0-70.0) Lymphocytes (%) (Auto) 43.7 % (9.0-44.0) Monocytes (%) (Auto) 7.6 % (0.0-8.0) Eosinophils (%) (Auto) 1.1 % (0.0-4.0) Basophils (%) (Auto) 0.1 % (0.0-2.0) Neutrophils # (Auto) 8.1 TH/MM3 (1.8-7.7) Lymphocytes # (Auto) 7.4 TH/MM3 (1.0-4.8) Monocytes # (Auto) 1.3 TH/MM3 (0-0.9) Eosinophils # (Auto) 0.2 TH/MM3 (0-0.4) Basophils # (Auto) 0.0 TH/MM3 (0-0.2) CBC Comment AUTO DIFF Differential Total Cells 100 Counted Neutrophils % (Manual) 36 % (16-70) Lymphocytes % 55 % (9-44) Monocytes % 8 % (0-8) Eosinophils % 1 % (0-4) Neutrophils # (Manual) 6.1 TH/MM3 (1.8-7.7) Differential Comment FINAL DIFF MANUAL Smudge Cells PRESENT Result Diagram: 02/27/17 0845 02/25/17 0536 Telemetry: NSR > sinus arrhythmia (1) Coronary artery disease (2) S/P CABG x 2 Plan: ASA, plavix, statin , BB , amiodarone pulm toileting nebs, ezpap , acapella OOB ambulate additional GI meds given CM to eval for [facility] (3) Diabetes mellitus Plan: resume oral meds this pm/ HGB A1C 5.7 on insulin at home / BP too low to resume long acting at this time (4) Hyperlipemia Plan: statin , heart healthy diet (5) Hypertension Plan: controlled (6) PAD (peripheral artery disease) (7) Blood loss anemia Plan: HGB 7.7/ > 9.1 ferrous sulfate recheck in am (8) Leukocytosis Plan: check CXR, UA, may be related to hematoma left leg Melissa Smith February 27, 2017 11:29
[2017-02-27 11:32] LABS: BICARBONATE 22.8 MEQ/L (21.0-32.0)
--- NOTE | 2017-02-27 12:06 | RADRPT ---
EXAM DATE/TIME: 02/27/2017 11:21 [place] COMPARISON: CHEST SINGLE AP, February 24, 2017, 5:20. INDICATIONS : Shortness of breath; evaluate left lower consolidation. MEDICAL HISTORY : Hypertension. Diabetes mellitus type II. SURGICAL HISTORY : CABG. ENCOUNTER: Subsequent ACUITY: 1 week PAIN SCORE: 0/10 LOCATION: Bilateral chest FINDINGS: There has been interval removal of thoracostomy tubes. There is no evidence of pneumothorax. There is persistent probable atelectasis at the left lung base. The right lung is clear. Cardiac contours are grossly stable. CONCLUSION: No pneumothorax following chest tube removal. Moderate persistent left base atelectasis Antonino Staples MD on February 27, 2017 at 11:59 Board Certified Radiologist. This report was verified electronically.
[2017-02-27] MEDS ORDERED: POTASSIUM CHLORIDE 10 MEQ CONTROLLED RELEASE TAB PO ONE (14:30)
[2017-02-27 17:05] LABS: BLOOD, URINE NEG (NEG); GLUCOSE,URINE NEG (NEG); KETONE, URINE TRACE mg/dL (NEG); MUCUS URINE FEW /lpf (OCC); NITRITE,URINE NEG (NEG); URINE COLOR YELLOW (YELLW/STRAW)
[2017-02-27 17:06] LABS: COMMENT (UR) CULT NOT INDICATED; CULTURE IF INDICATED CULT NOT INDICATED
[2017-02-27] MEDS: SENNOSIDES 8.6 MG TAB PO SCH (21:00)
[2017-02-27] MEDS: ATORVASTATIN 40 MG TAB PO SCH (21:43)
[2017-02-28] VITALS (26 sets, daily range): BP systolic 137–147; BP diastolic 55–78; PULSE 62–79; RESP 17–18; TEMP 97.5–98.9; O2SAT 95–98
[2017-02-28] MEDS: PANTOPRAZOLE SOD 40 MG DELAYED RELEASE TAB PO SCH (06:15)
[2017-02-28] MEDS: INSULIN ASPART SUPPLEMENTAL SCALE SQ SCH ×4 (06:20→21:00)
[2017-02-28] MEDS: AMIODARONE 200 MG TAB PO SCH ×2 (08:58→21:34)
[2017-02-28] MEDS: ENALAPRIL MALEATE 10 MG TAB PO SCH (08:58)
[2017-02-28] MEDS: MULTIVITAMINS/MINERALS THERAPEUTIC TAB PO SCH (08:59)
[2017-02-28] MEDS: ALLOPURINOL 100 MG TAB PO SCH (08:59)
[2017-02-28] MEDS: metFORMIN HCL 500 MG TAB PO SCH ×2 (08:59→17:33)
[2017-02-28] MEDS: ASPIRIN 81 MG CHEW TAB PO SCH (08:59)
[2017-02-28] MEDS: CLOPIDOGREL 75 MG TAB PO SCH (08:59)
[2017-02-28] MEDS: glyBURIDE 5 MG TAB PO SCH ×2 (08:59→21:34)
[2017-02-28] MEDS: CARVEDILOL 3.125 MG TAB PO SCH ×2 (08:59→21:34)
[2017-02-28] MEDS: SODIUM CHLORIDE 0.9% FLUSH 10 ML FLUSH IV FLUSH SCH ×2 (09:00→21:35)
[2017-02-28] MEDS: POLYETHYLENE GLYCOL 17 GM PKG PO SCH (09:00)
[2017-02-28] MEDS: DOCUSATE SODIUM 100 MG CAP PO SCH ×2 (09:00→21:34)
[2017-02-28] MEDS: MAGNESIUM HYDROXIDE SUSP 30 ML CUP PO SCH (09:00)
[2017-02-28 09:03] LABS: AUTOMATED NEUTROPHIL # 6.8 TH/MM3 (1.8-7.7); BASOPHIL % 0.1 % (0.0-2.0); EOSINOPHIL # 0.2 TH/MM3 (0-0.4); EOSINOPHIL % 1.6 % (0.0-4.0); HEMATOCRIT 25.5 % (39.0-51.0); LYMPH % 40.8 % (9.0-44.0); LYMPHOCYTE # 5.7 TH/MM3 (1.0-4.8); MEAN CELL VOLUME 83.9 FL (80.0-100.0); MEAN CORPUSCULAR HEMOGLOBIN 28.8 PG (27.0-34.0); MEAN CORPUSCULAR HGB CONC 34.3 % (32.0-36.0); MONO % 8.6 % (0.0-8.0); NEUT % 48.9 % (16.0-70.0); PLATELET COUNT 142 TH/MM3 (150-450); RED BLOOD COUNT 3.04 MIL/MM3 (4.50-5.90); RED CELL DISTRIBUTION WIDTH 15.3 % (11.6-17.2); WHITE BLOOD COUNT 13.9 TH/MM3 (4.0-11.0)
[2017-02-28 09:07] LABS: HEMO FLAGS AUTO DIFF
[2017-02-28 09:26] LABS: BICARBONATE 22.1 MEQ/L (21.0-32.0); POTASSIUM 3.6 MEQ/L (3.5-5.1)
[2017-02-28 09:43] LABS: BANDS 2 % (0-6); CALCIUM-PROTEIN CORRECTED 7.8 MG/DL (8.5-10.1); CORRECTED NUCLEATED RBC 1 /100 WBC (0-0); EOSINOPHILS 4 % (0-4); NEUTROPHIL # MANUAL DIFF 9.2 TH/MM3 (1.8-7.7); POLYS (SEG NEUTROPHILS) 64 % (16-70); WBC DIFF SAMPLE 100
[2017-02-28 09:44] LABS: PLATELET ESTIMATE SMEAR LOW (NORMAL); PLATELET MORPHOLOGY NORMAL (NORMAL)
[2017-02-28 09:46] LABS: SCAN/DIFF FINAL DIFF MANUAL
--- NOTE | 2017-02-28 11:12 | PD.CAR.PN ---
CVT Progress Note Subjective/Hospital Course: 76/ male c/o of chest and abdominal pain after a large meal/ recently passed stress test, returned from a recent trip to [place] had noted chest tightness when walking , + SOB underwent cardiac cath by Dr Loja 50% Left main, 90% LAD, 75% diagonal and 99 % RCA EF 60% PMH: CAD, HTN, HLP , PAD surgery : 02/23 Off-pump Coronary Artery Bypass Grafting x 3 with left internal mammary artery (KENNEDY) to Diagonal ! (D1), reverse saphenous vein graft to the OM1, reverse saphenous vein graft to the RPDA Transmyocardial Laser Revascularization (Anterior wall - 14 channels) Left Leg Endoscopic Vein [place] Intraoperative Vein Mapping. 3000cc crystalloid , 450cell saver 02/24 extubated after surgery on nasal cannula HGB 7.7/ start ferrous sulfate / recheck H&H in am ECG noted, no change from preop start low dose BB, gentle diuresis transfer to stepdown unit 02/25 Doing well Monitoring Hgb Maintain CT until tomorrow Increase beta lucrecia 02/26 Doing well D/C CT Pulmonary toiletry 02/27 f/u cxr results, WBC now 17K, check UA , no CVC line reorder ezpap acapella no BM since surgery, give supp/ enema recheck lab in am family and pt wanting now to go to rehab 02/28 WBC improved, NA remains low at 119 urine OS 489, serum os 250 chloride now 85 will consult nephrology , 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 EYES: No scleral icterus. No injection or drainage. NECK: Supple, trachea midline. No JVD or lymphadenopathy. CARDIOVASCULAR: Regular rate and rhythm without murmurs, gallops, or rubs. RESPIRATORY: Breath sounds equal bilaterally. No accessory muscle use. GASTROINTESTINAL: Abdomen soft, non-tender, nondistended. MUSCULOSKELETAL: No cyanosis, or edema. BACK: Nontender without obvious deformity. No CVA tenderness. Vital Signs Date Time Temp Pulse Resp B/P Pulse Ox O2 Delivery O2 Flow Rate FiO2 02/28/17 10:00 69 02/28/17 09:00 77 02/28/17 08:00 67 02/28/17 07:00 74 02/28/17 07:00 98.6 69 17 140/73 95 02/28/17 06:00 66 02/28/17 05:00 62 02/28/17 04:00 98.2 75 18 147/78 96 02/28/17 04:00 64 02/28/17 03:00 66 02/28/17 02:00 62 02/28/17 01:00 66 02/28/17 00:00 98.9 70 18 141/72 98 02/28/17 00:00 73 02/27/17 23:00 62 02/27/17 22:00 62 02/27/17 21:00 62 02/27/17 20:00 98.5 71 18 137/75 98 02/27/17 20:00 63 02/27/17 19:00 66 02/27/17 18:00 65 02/27/17 17:00 75 02/27/17 16:00 75 02/27/17 15:00 98.9 73 18 130/71 96 02/27/17 15:00 75 02/27/17 14:03 64 02/27/17 13:31 66 02/27/17 12:00 81 Labs: Laboratory Tests Test 02/28/17 07:58 White Blood Count 13.9 TH/MM3 (4.0-11.0) Red Blood Count 3.04 MIL/MM3 (4.50-5.90) Hemoglobin 8.8 GM/DL (13.0-17.0) Hematocrit 25.5 % (39.0-51.0) Mean Corpuscular Volume 83.9 FL (80.0-100.0) Mean Corpuscular Hemoglobin 28.8 PG (27.0-34.0) Mean Corpuscular Hemoglobin 34.3 % Concent (32.0-36.0) Red Cell Distribution Width 15.3 % (11.6-17.2) Platelet Count 142 TH/MM3 (150-450) Mean Platelet Volume 7.4 FL (7.0-11.0) Neutrophils (%) (Auto) 48.9 % (16.0-70.0) Lymphocytes (%) (Auto) 40.8 % (9.0-44.0) Monocytes (%) (Auto) 8.6 % (0.0-8.0) Eosinophils (%) (Auto) 1.6 % (0.0-4.0) Basophils (%) (Auto) 0.1 % (0.0-2.0) Neutrophils # (Auto) 6.8 TH/MM3 (1.8-7.7) Lymphocytes # (Auto) 5.7 TH/MM3 (1.0-4.8) Monocytes # (Auto) 1.2 TH/MM3 (0-0.9) Eosinophils # (Auto) 0.2 TH/MM3 (0-0.4) Basophils # (Auto) 0.0 TH/MM3 (0-0.2) CBC Comment AUTO DIFF Differential Total Cells 100 Counted Neutrophils % (Manual) 64 % (16-70) Band Neutrophils % 2 % (0-6) Lymphocytes % 23 % (9-44) Monocytes % 7 % (0-8) Eosinophils % 4 % (0-4) Neutrophils # (Manual) 9.2 TH/MM3 (1.8-7.7) Nucleated Red Blood Cells 1 /100 WBC (0-0) Differential Comment FINAL DIFF MANUAL Platelet Estimate LOW (NORMAL) Platelet Morphology Comment NORMAL (NORMAL) Polychromasia 2.0 % (0.0-1.9) Sodium Level 119 MEQ/L (136-145) Potassium Level 3.6 MEQ/L (3.5-5.1) Chloride Level 85 MEQ/L (98-107) Carbon Dioxide Level 22.1 MEQ/L (21.0-32.0) Anion Gap 12 MEQ/L (5-15) Blood Urea Nitrogen 12 MG/DL (7-18) Creatinine 0.71 MG/DL (0.60-1.30) Estimat Glomerular Filtration 108 ML/MIN Rate (>89) Random Glucose 89 MG/DL (74-106) Calcium Level 6.9 MG/DL (8.5-10.1) Protein Corrected Calcium 7.8 MG/DL (8.5-10.1) Total Protein 5.3 GM/DL (6.4-8.2) Result Diagram: 02/28/17 0758 02/28/17 0758 Telemetry: NSR (1) Coronary artery disease (2) S/P CABG x 2 Plan: ASA, plavix, statin , BB , amiodarone pulm toileting nebs, ezpap , acapella OOB ambulate CM to eval for C (3) Diabetes mellitus Plan: resume oral meds this pm/ HGB A1C 5.7 on insulin at home / BP too low to resume long acting at this time (4) Hyperlipemia Plan: statin , heart healthy diet (5) Hypertension Plan: controlled (6) PAD (peripheral artery disease) (7) Blood loss anemia Plan: HGB 7.7/ > 9.1 ferrous sulfate recheck in am (8) Leukocytosis Plan: check CXR, UA, may be related to hematoma left leg (9) hyponatermia Plan: await ADH level, s/p diuretics 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 pt states he has had a low NA level in past 128 will consult nephrology Melissa Smith February 28, 2017 11:12
[2017-02-28] MEDS ORDERED: POTASSIUM CHLORIDE 10 MEQ CONTROLLED RELEASE TAB PO ONE (12:00)
[2017-02-28] MEDS: FERROUS SULFATE 325 MG (65 MG ELEMENTAL IRON) TAB PO SCH ×2 (12:03→17:33)
--- NOTE | 2017-02-28 13:26 | PD.CONS ---
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 He has developed severe hyponatremia although he is asymptomatic his last sodium is 119. Review of Systems Constitutional: COMPLAINS OF: Fatigue Cardiovascular: COMPLAINS OF: Chest pain Musculoskeletal: COMPLAINS OF: Muscle aches Past Family Social History Allergies: Coded Allergies: No Known Allergies (Verified , NONE, 11/11/11) Uncoded Allergies: OAK OR [place]/NOT SURE (Adverse Reaction, Intermediate, SNEEZING , RUNNY NOSE, , 12/30/10) SEASONAL ALLERGIES Past Medical History Diabetes Hypertension chronic hyponatremia Coronary artery disease GERD Past Surgical History Tonsillectomy and adenoidectomy Hand surgery for contracture Eye surgery for detached retina Right inguinal hernia repair Basal cell removal upper lip PTCA for coronary artery Reported Medications Reported Meds & Active Scripts Active Reported Fish Oil (Liberal-3 Fatty Acids) 1,000 Mg Cap Coq-10 (Coenzyme Q10 (Ubidecarenone)) 400 Mg Cap Carvedilol 6.25 Mg Tab 6.25 Mg PO BID Amlodipine (Amlodipine Besylate) 10 Mg Tab 10 Mg PO DAILY Centrum Silver (Multiple Vitamins W/ Minerals) 1 Tab 1 Tab PO DAILY B-12 1000 (Cobalamine Combinations) 1,000-400 Mcg Subl 0.5 Tab PO DAILY Benadryl Allergy (Diphenhydramine HCl) 25 Mg Cap Novolog Inj (Insulin Aspart) 1,000 Unit/10 Ml Vial 20 Units SQ Lantus Inj (Insulin Glargine) 100 Unit/Ml Inj Unit titrates aCCORDING TO BLOOD SUGARS Glyburide Micronized 6 Mg Tab 6 Mg PO BID Pantoprazole (Pantoprazole Sodium) 40 Mg Tab 40 Mg PO DAILY Allopurinol 100 Mg Tab 100 Mg PO DAILY Nitrostat SL (Nitroglycerin) 0.4 Mg Subl 0.4 Mg SL DIRECTED PRN 1 tablet under the tongue as needed for chest pain. Repeat every 5 minutes for a total of 3 DOSES or call 911 if NO relief. Turmeric Curcumin (Tier 3 Natural Products) 1 Cap Nasacort Allergy 24Hr Nasal (Triamcinolone Nasal) 55 Mcg/Act Spr 1 Hoven EACH NARE DAILY Metformin (Metformin HCl) 1,000 Mg Tab 1,000 Mg PO BIDPC With meals Imodium A-D (Loperamide HCl) 2 Mg Cap 1 Mg PO DIRECTED PRN One capsule after each loose stool. Not to exceed 8 tablets per day. Enalapril (Enalapril Maleate) 20 Mg Tab 20 Mg PO DAILY Atorvastatin (Atorvastatin Calcium) 40 Mg Tab 40 Mg PO HS Aspirin 81 Mg Tabdr 81 Mg PO DAILY [Vit D3 ] 400 PO BID Active Ordered Medications Current Medications Medications (Trade) Dose Ordered Sig/Lashon Route Start Time Stop Time Status Last Admin (NS Flush) 2 ml BID IV FLUSH 02/23/17 21:00 02/28/17 09:00 Sodium Chloride 2 ml 2 ml UNSCH PRN IV FLUSH 02/23/17 17:30 02/26/17 18:41 (Lr 1000 ml Inj) 500 ml @ 500 mls/hr Q1H PRN IV 02/23/17 17:22 (Aspirin Chew) 81 mg DAILY PO 02/24/17 09:00 02/28/17 08:59 (Plavix) 75 mg DAILY PO 02/24/17 09:00 02/28/17 08:59 (Protonix) 40 mg DAILY@06 PO 02/24/17 06:00 02/28/17 06:15 (Tylenol) 650 mg Q4H PRN PO 02/23/17 17:30 (Lengby 5-325 Mg) 1 tab Q3H PRN PO 02/23/17 17:30 02/26/17 00:48 (Lengby 5-325 Mg) 2 tab Q3H PRN PO 02/23/17 17:30 02/26/17 09:58 (Zofran Inj) 4 mg Q6H PRN IV PUSH 02/23/17 17:30 02/26/17 18:41 Hydralazine HCl 10 mg 10 mg Q4H PRN IV 02/23/17 17:30 Magnesium Sulfate 2 gm/Sodium Chloride 104 ml @ 100 mls/hr UNSCH PRN IV 02/23/17 17:30 (Magnesium Sulfate Inj/NS Inj) 104 ml @ 50 mls/hr UNSCH PRN IV 02/23/17 17:30 02/25/17 09:13 (D50w (Vial) Inj) 25 ml UNSCH PRN IV PUSH 02/23/17 17:30 (Zyloprim) 100 mg DAILY PO 02/25/17 09:00 02/28/17 08:59 (Lipitor) 40 mg HS PO 02/24/17 21:00 02/27/17 21:43 (Colace) 100 mg BID PO 02/24/17 09:30 02/27/17 09:25 (Theragran M Tab) 1 tab DAILY PO 02/25/17 09:00 02/28/17 08:59 (Milk Of Magnesia Liq) 30 ml DAILY PO 02/25/17 09:00 02/27/17 09:24 (Miralax) 17 gm DAILY PO 02/25/17 09:00 02/27/17 09:24 (Senokot) 8.6 mg HS PO 02/24/17 21:00 02/26/17 21:35 (Fleets Enema (Adult)) 133 ml UNSCH PRN RECTAL 02/24/17 09:30 (D50w (Vial) Inj) 25 ml UNSCH PRN IV 02/24/17 09:30 (Glucagon Inj) 1 mg UNSCH PRN OTHER 02/24/17 09:30 (Ferrous Sulfate) 325 mg BID@,17 PO 02/24/17 12:00 02/28/17 12:03 (Coreg) 6.25 mg Q12HR PO 02/25/17 21:00 02/28/17 08:59 (NovoLOG SUPPLEMENTAL SCALE) 1 ACHS SQ 02/25/17 11:00 02/28/17 11:00 (Vasotec) 10 mg DAILY PO 02/27/17 09:00 02/28/17 08:58 (Dulcolax Supp) 10 mg DAILY PRN RECTAL 02/27/17 10:15 (Cordarone) 200 mg Q12HR PO 02/27/17 21:00 02/28/17 08:58 (Diabeta) 5 mg BID PO 02/28/17 21:00 (Glucophage) 500 mg BIDPC PO 02/28/17 18:00 Family History Noncontributory Social History Used to smoke a long time ago quit in 1979, alcohol use the until last year Physical Exam Vital Signs Vital Signs Date Time Temp Pulse Resp B/P Pulse Ox O2 Delivery O2 Flow Rate FiO2 02/28/17 12:00 69 02/28/17 11:00 68 02/28/17 11:00 97.5 68 18 145/75 96 02/28/17 10:00 69 02/28/17 09:00 77 02/28/17 08:00 67 02/28/17 07:00 74 02/28/17 07:00 98.6 69 17 140/73 95 02/28/17 06:00 66 02/28/17 05:00 62 02/28/17 04:00 98.2 75 18 147/78 96 02/28/17 04:00 64 02/28/17 03:00 66 02/28/17 02:00 62 02/28/17 01:00 66 02/28/17 00:00 98.9 70 18 141/72 98 02/28/17 00:00 73 02/27/17 23:00 62 02/27/17 22:00 62 02/27/17 21:00 62 02/27/17 20:00 98.5 71 18 137/75 98 02/27/17 20:00 63 02/27/17 19:00 66 02/27/17 18:00 65 02/27/17 17:00 75 02/27/17 16:00 75 02/27/17 15:00 98.9 73 18 130/71 96 02/27/17 15:00 75 02/27/17 14:03 64 02/27/17 13:31 66 Physical Exam GENERAL: Well-nourished, well-developed patient. SKIN: Warm and dry. HEAD: Normocephalic. EYES: No scleral icterus. No injection or drainage. NECK: Supple, trachea midline. No JVD or lymphadenopathy. CARDIOVASCULAR: Regular rate and rhythm without murmurs, gallops, or rubs. Sternal wound is dressed RESPIRATORY: Breath sounds equal bilaterally. No accessory muscle use. GASTROINTESTINAL: Abdomen soft, non-tender, nondistended. EXTREMITIES: No cyanosis, or edema. NEUROLOGICAL: Awake, alert, and oriented x 3. Non-focal. Laboratory Laboratory Tests Test 02/27/17 02/28/17 16:30 07:58 Urine Color YELLOW Urine Turbidity CLEAR Urine pH 6.0 Urine Specific [place] 1.014 Urine Protein NEG Urine Glucose (UA) NEG Urine Ketones TRACE Urine Occult Blood NEG Urine Nitrite NEG Urine Bilirubin NEG Urine Urobilinogen LESS THAN 2.0 Urine Leukocyte Esterase NEG Urine RBC 1 Urine WBC LESS THAN 1 Urine Mucus FEW Microscopic Urinalysis Comment CULT NOT INDICATED Urine Osmolality 489 Urine Random Sodium 45 White Blood Count 13.9 Red Blood Count 3.04 Hemoglobin 8.8 Hematocrit 25.5 Mean Corpuscular Volume 83.9 Mean Corpuscular Hemoglobin 28.8 Mean Corpuscular Hemoglobin 34.3 Concent Red Cell Distribution Width 15.3 Platelet Count 142 Mean Platelet Volume 7.4 Neutrophils (%) (Auto) 48.9 Lymphocytes (%) (Auto) 40.8 Monocytes (%) (Auto) 8.6 Eosinophils (%) (Auto) 1.6 Basophils (%) (Auto) 0.1 Neutrophils # (Auto) 6.8 Lymphocytes # (Auto) 5.7 Monocytes # (Auto) 1.2 Eosinophils # (Auto) 0.2 Basophils # (Auto) 0.0 CBC Comment AUTO DIFF Differential Total Cells 100 Counted Neutrophils % (Manual) 64 Band Neutrophils % 2 Lymphocytes % 23 Monocytes % 7 Eosinophils % 4 Neutrophils # (Manual) 9.2 Nucleated Red Blood Cells 1 Differential Comment FINAL DIFF MANUAL Platelet Estimate LOW Platelet Morphology Comment NORMAL Polychromasia 2.0 Sodium Level 119 Potassium Level 3.6 Chloride Level 85 Carbon Dioxide Level 22.1 Anion Gap 12 Blood Urea Nitrogen 12 Creatinine 0.71 Estimat Glomerular Filtration 108 Rate Random Glucose 89 Calcium Level 6.9 Protein Corrected Calcium 7.8 Total Protein 5.3 Result Diagram: 02/28/17 0758 02/28/17 0758 Imaging Last Impressions Chest X-Ray 02/27/17 0000 Signed Impressions: Service Date/Time: Monday, February 27, 2017 11:21 - CONCLUSION: No pneumothorax following chest tube removal. 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
[2017-02-28] MEDS ORDERED: TOLVAPTAN 15 MG TAB PO ONE (14:00)
[2017-02-28] MEDS: ATORVASTATIN 40 MG TAB PO SCH (21:34)
[2017-02-28] MEDS: SENNOSIDES 8.6 MG TAB PO SCH (21:34)
[2017-03-01] VITALS (17 sets, daily range): BP systolic 122–158; BP diastolic 64–76; PULSE 60–79; RESP 16–18; TEMP 97.5–98.1; O2SAT 94–97
[2017-03-01] MEDS: PANTOPRAZOLE SOD 40 MG DELAYED RELEASE TAB PO SCH (06:24)
[2017-03-01] MEDS: INSULIN ASPART SUPPLEMENTAL SCALE SQ SCH ×2 (06:24→12:19)
[2017-03-01 07:03] LABS: BICARBONATE 25.6 MEQ/L (21.0-32.0); POTASSIUM 3.8 MEQ/L (3.5-5.1)
[2017-03-01] MEDS ORDERED: TOLVAPTAN 15 MG TAB PO SCH (09:00)
[2017-03-01] MEDS: POLYETHYLENE GLYCOL 17 GM PKG PO SCH (09:00)
[2017-03-01] MEDS: MAGNESIUM HYDROXIDE SUSP 30 ML CUP PO SCH (09:00)
[2017-03-01] MEDS: ENALAPRIL MALEATE 10 MG TAB PO SCH (09:04)
[2017-03-01] MEDS: CARVEDILOL 3.125 MG TAB PO SCH (09:04)
[2017-03-01] MEDS: ASPIRIN 81 MG CHEW TAB PO SCH (09:04)
[2017-03-01] MEDS: metFORMIN HCL 500 MG TAB PO SCH (09:04)
[2017-03-01] MEDS: CLOPIDOGREL 75 MG TAB PO SCH (09:04)
[2017-03-01] MEDS: glyBURIDE 5 MG TAB PO SCH (09:04)
[2017-03-01] MEDS: DOCUSATE SODIUM 100 MG CAP PO SCH (09:04)
[2017-03-01] MEDS: MULTIVITAMINS/MINERALS THERAPEUTIC TAB PO SCH (09:04)
[2017-03-01] MEDS: AMIODARONE 200 MG TAB PO SCH (09:04)
[2017-03-01] MEDS: ALLOPURINOL 100 MG TAB PO SCH (09:04)
[2017-03-01] MEDS: SODIUM CHLORIDE 0.9% FLUSH 10 ML FLUSH IV FLUSH SCH (09:05)
[2017-03-01] MEDS: FERROUS SULFATE 325 MG (65 MG ELEMENTAL IRON) TAB PO SCH (12:18)
[2017-03-01] MEDS ORDERED: FERR325T PO (14:06)
[2017-03-01] MEDS ORDERED: PLAV75TA29 PO (14:06)
[2017-03-01] MEDS ORDERED: AMIO200T PO (14:06)
[2017-03-01] MEDS ORDERED: ENAL10TA PO (14:06)
--- NOTE | 2017-03-01 14:07 | HHI.DS ---
Discharge Summary Admission Date Feb 23, 2017 at 09:02 Discharge Date: March 01, 2017 Admitting Diagnosis CBC/BMP: 02/28/17 0758 03/01/17 0539 Significant Findings Laboratory Tests Test 02/27/17 02/27/17 02/27/17 02/28/17 08:45 10:57 16:30 07:58 White Blood Count 17.0 TH/MM3 13.9 TH/MM3 (4.0-11.0) (4.0-11.0) Red Blood Count 3.16 MIL/MM3 3.04 MIL/MM3 (4.50-5.90) (4.50-5.90) Hemoglobin 9.1 GM/DL 8.8 GM/DL (13.0-17.0) (13.0-17.0) Hematocrit 26.3 % 25.5 % (39.0-51.0) (39.0-51.0) Neutrophils # (Auto) 8.1 TH/MM3 (1.8-7.7) Lymphocytes # (Auto) 7.4 TH/MM3 5.7 TH/MM3 (1.0-4.8) (1.0-4.8) Monocytes # (Auto) 1.3 TH/MM3 1.2 TH/MM3 (0-0.9) (0-0.9) Lymphocytes % 55 % (9-44) Sodium Level 119 MEQ/L 119 MEQ/L (136-145) (136-145) Chloride Level 84 MEQ/L 85 MEQ/L (98-107) (98-107) Serum Osmolality 250 MOSM/KG (275-295) Calcium Level 7.5 MG/DL 6.9 MG/DL (8.5-10.1) (8.5-10.1) Urine Ketones TRACE mg/dL (NEG) Urine Mucus FEW /lpf (OCC) Platelet Count 142 TH/MM3 (150-450) Monocytes (%) (Auto) 8.6 % (0.0-8.0) Neutrophils # (Manual) 9.2 TH/MM3 (1.8-7.7) Nucleated Red Blood Cells 1 /100 WBC (0-0) Platelet Estimate LOW (NORMAL) Polychromasia 2.0 % (0.0-1.9) Protein Corrected Calcium 7.8 MG/DL (8.5-10.1) Total Protein 5.3 GM/DL (6.4-8.2) Test 03/01/17 05:39 Sodium Level 133 MEQ/L (136-145) Random Glucose 64 MG/DL (74-106) Calcium Level 7.9 MG/DL (8.5-10.1) Hospital Course Subjective/Hospital Course: 76/ male c/o of chest and abdominal pain after a large meal/ recently passed stress test, returned from a recent trip to [place] had noted chest tightness when walking , + SOB underwent cardiac cath by Dr Loja 50% Left main, 90% LAD, 75% diagonal and 99 % RCA EF 60% PMH: CAD, HTN, HLP , PAD surgery : 02/23 Off-pump Coronary Artery Bypass Grafting x 3 with left internal mammary artery (KENNEDY) to Diagonal ! (D1), reverse saphenous vein graft to the OM1, reverse saphenous vein graft to the RPDA Transmyocardial Laser Revascularization (Anterior wall - 14 channels) Left Leg Endoscopic Vein [place] Intraoperative Vein Mapping. 3000cc crystalloid , 450cell saver 02/24 extubated after surgery on nasal cannula HGB 7.7/ start ferrous sulfate / recheck H&H in am ECG noted, no change from preop start low dose BB, gentle diuresis transfer to stepdown unit 02/25 Doing well Monitoring Hgb Maintain CT until tomorrow Increase beta lucrecia 02/26 Doing well D/C CT Pulmonary toiletry 02/27 f/u cxr results, WBC now 17K, check UA , no CVC line reorder ezpap acapella no BM since surgery, give supp/ enema recheck lab in am family and pt wanting now to go to rehab 02/28 WBC improved, NA remains low at 119 urine OS 489, serum os 250 chloride now 85 will consult nephrology , 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 ADH level pending 03/01 D/C Home with [facility] Discharge Disposition: Disch w/ Home Health Serv Discharge Instructions DIET: Follow Instructions for: Heart Healthy Diet Activities you can perform: Full Weight Bearing, Shower Only-No Bath Activities to avoid: Lifting/Bending, Bathing, Driving Follow up Referrals: Appointment for Follow Up Appointment for Follow Up Appointment for Follow Up New Medications: Amiodarone (Amiodarone) 200 Mg Tab 200 MG PO Q12HR z Days 14 TAB Clopidogrel (Plavix) 75 Mg Tab 75 MG PO DAILY z Days 90 Ref 10 TAB Enalapril (Enalapril) 10 Mg Tab 10 MG PO DAILY Blood Pressure Management Days 30 TAB Ferrous Sulfate (Ferrous Sulfate) 325 Mg Tab 325 MG PO BID@12,17 z Days 28 TAB Continued Medications: Allopurinol (Allopurinol) 100 Mg Tab 100 MG PO DAILY Gout #30 Ref 0 TAB Amlodipine (Amlodipine) 10 Mg Tab 10 MG PO DAILY Blood Pressure Management #30 Ref 0 TAB Aspirin (Aspirin) 81 Mg Tabdr 81 MG PO DAILY TAB Atorvastatin (Atorvastatin) 40 Mg Tab 40 MG PO HS Cholesterol Management #30 Ref 0 TAB Carvedilol (Carvedilol) 6.25 Mg Tab 6.25 MG PO BID #60 Ref 0 TAB Cobalamine Combinations (B-12 1000) 1,000-400 Mcg Subl 0.5 TAB PO DAILY Nutritional Supplement Ref 0 TAB.SL Coenzyme Q10 (Ubidecarenone) (Coq-10) 400 Mg Cap Diphenhydramine HCl (Benadryl Allergy) 25 Mg Cap Glyburide Micronized (Glyburide Micronized) 6 Mg Tab 6 MG PO BID Blood Sugar Management #60 Ref 0 TAB Insulin Aspart Inj (Novolog Inj) 1,000 Unit/10 Ml Vial 20 UNITS SQ Blood Sugar Management #10 Ref 0 ML Insulin Glargine Inj (Lantus Inj) 100 Unit/Ml Inj UNIT titrates aCCORDING TO BLOOD SUGARS Loperamide (Imodium A-D) 2 Mg Cap 1 MG PO DIRECTED One capsule after each loose stool. Not to exceed 8 tablets per day. PRN DIARRHEA Ref 0 CAP Metformin (Metformin) 1,000 Mg Tab 1000 MG PO BIDPC With meals Blood Sugar Management #60 Ref 0 TAB Misc Natural Products (Turmeric Curcumin) 1 Cap Multiple Vitamins W/ Minerals (Centrum Silver) 1 Tab 1 TAB PO DAILY Nutritional Supplement Ref 0 TAB Nitroglycerin SL (Nitrostat SL) 0.4 Mg Subl 0.4 MG SL DIRECTED 1 tablet under the tongue as needed for chest pain. Repeat every 5 minutes for a total of 3 DOSES or call 911 if NO relief. PRN CHEST PAIN #100 Ref 0 TAB.SL Conde-3 Fatty Acids (Fish Oil) 1,000 Mg Cap Pantoprazole (Pantoprazole) 40 Mg Tab 40 MG PO DAILY Reflux #30 Ref 0 TAB Triamcinolone Nasal (Nasacort Allergy 24Hr Nasal) 55 Mcg/Act Spr 1 SPRAY EACH NARE DAILY Allergies #1 Ref 0 BOTTLE ([Vit D3 ]) 400 PO BID Discontinued Medications: Enalapril (Enalapril) 20 Mg Tab 20 MG PO DAILY #30 Ref 0 TAB Izaiah Guadalupe MD March 01, 2017 14:07
--- NOTE | 2017-03-01 14:35 | HHI.NPPN ---
Subjective History of Present Illness s/p CABG with Hyponatremia Objective Data Data 02/28/17 03/01/17 19:00 07:00 Intake Total 840 ml 1440 ml Output Total 1950 ml 4200 ml Balance -1110 ml -2760 ml Intake Oral 840 ml 1440 ml Output Urine Total 1950 ml 4200 ml # Bowel Movements 1 Vital Signs Date Time Temp Pulse Resp B/P Pulse Ox O2 Delivery O2 Flow Rate FiO2 03/01/17 14:00 72 03/01/17 13:00 64 03/01/17 12:00 64 03/01/17 11:00 97.9 68 16 122/64 96 03/01/17 11:00 71 03/01/17 10:00 79 03/01/17 09:00 76 03/01/17 08:18 94 21 03/01/17 08:00 74 03/01/17 08:00 69 03/01/17 07:00 97.5 76 17 158/76 97 03/01/17 05:00 64 03/01/17 04:00 70 03/01/17 03:23 98.1 65 18 137/73 96 03/01/17 03:00 74 03/01/17 02:00 70 03/01/17 01:00 60 03/01/17 00:00 72 02/28/17 23:45 98.5 75 18 137/60 96 02/28/17 23:00 79 02/28/17 22:00 79 02/28/17 21:00 76 02/28/17 20:00 78 02/28/17 19:30 98.5 71 18 146/55 96 02/28/17 19:00 66 02/28/17 18:05 79 02/28/17 17:00 75 02/28/17 16:00 73 02/28/17 15:00 70 02/28/17 15:00 98.4 72 18 142/77 96 -: 02/28/17 0758 03/01/17 0539 Physical Exam General Appearance: Well Developed Neck Neck Exam: Neck Supple Pulmonary Resp Exam: Clear Bilaterally Cardiology CV Exam: Regular, Normal Sinus Rhythm Gastrointestinal/Abdomen GI Exam: Soft, Non-Tender Extremeties Extremities Exam: No Edema Assessment/Plan Problem List: (1) hyponatermia Plan: He has had SIADH and has long-standing history of chronic hyponatremia, this has been evaluated about 10 years ago and stopping HCTZ did help at that time Na 133 corrected post Tolvaptan d/w pt Water intake 4 -5 8 oz glasses a day add salt to diet He has been diagnosed with an MGUS (2) Coronary artery disease Plan: Doing well and continued to improve (3) Diabetes mellitus Plan: Monitor blood glucose (4) Hypertension Plan: Continue to monitor Problem Qualifiers (1) Coronary artery disease: (2) Diabetes mellitus: Tawanda Lyn MD March 01, 2017 14:35
--- NOTE | 2017-03-04 08:43 | PQ ---
Physician Query Response Document PATIENT: DULCE MARIA CARDOSO : 1940 ADMIT DATE: 02/23/2017 9:02 AM DISCH DATE: 03/01/2017 3:50 PM RESPONDING PROVIDER #: bari QUERY TEXT: Anemia Type Anemia is documented in the Medical Record. Please specify the cause (includes suspected or probable cause) Such as: -- Due to acute blood loss -- Due to chronic blood loss -- Due to iron deficiency -- Due to postoperative blood loss -- Due to chronic disease -- Other, please specify If you have any additional questions/comments and/or concerns, please do not hesitate to reach out to the CDI/Coding Hotline, Ext. [phone]. The patient's Clinical Indicators include: H Progress Note of 02/24/17 (postop) documents: (7) Blood loss anemia HGB 7.7/ start ferrous sulfate / recheck H H in am H Progress Notes document ecchymosis/hematoma at saphenous vein harvest site. RBC Transfusion given 02/26/17. Query created by: Ashanti Kovacs on 03/02/2017 2:41 PM RESPONSE TEXT: Anemia due to operative blood loss and hemodilution Electronically signed by: Izaiah Guadalupe MD 03/04/2017 8:39 AM
--- NOTE | 2017-03-05 08:21 | PQ ---
Physician Query Response Document PATIENT: DULCE MARIA CARDOSO : 1940 ADMIT DATE: 02/23/2017 9:02 AM DISCH DATE: 03/01/2017 3:50 PM RESPONDING PROVIDER #: bari QUERY TEXT: Anemia Type Blood Loss Anemia is documented in the Medical Record. Please specify the cause (includes suspected or probable cause) Such as: -- Due to ACUTE blood loss -- Due to CHRONIC blood loss -- Due to iron deficiency -- Due to chronic disease -- Other, please specify The patient's Clinical Indicators include: PER PROGRESS NOTE 02/26/17: (7) Blood loss anemia Plan: HGB 7.7/ start ferrous sulfate TRANSFUSED 2 UNITS PRBCs Query created by: Thais Hickman on 02/28/2017 8:55 AM RESPONSE TEXT: Provider disagreed with this CDI query. already done Electronically signed by: Izaiah Guadalupe MD 03/05/2017 8:17 AM
== END 2017-03-01 15:50 | disposition home health service (06) | DRG 234 ==
LOC: HSDI 02-23 09:02 → HCVR 02-23 17:45 → HCIN 02-24 15:35
PROVIDERS: ADMIT Thoracic Surgery (Cardiothoracic Vascular Surgery); ATTEND Thoracic Surgery (Cardiothoracic Vascular Surgery)
PROC: 4A023N7 Measurement of Cardiac Sampling and Pressure, Left Heart, Percutaneous Approach (ICD-10-PCS; 2017-02-20)
PROC: B2111ZZ Fluoroscopy of Multiple Coronary Arteries using Low Osmolar Contrast (ICD-10-PCS; 2017-02-20)
PROC: B2151ZZ Fluoroscopy of Left Heart using Low Osmolar Contrast (ICD-10-PCS; 2017-02-20)
PROC: 06BQ4ZZ Excision of Left Saphenous Vein, Percutaneous Endoscopic Approach (ICD-10-PCS; 2017-02-23)
PROC: 02QA0ZZ Repair Heart, Open Approach (ICD-10-PCS; 2017-02-23)
PROC: 02100Z9 Bypass Coronary Artery, One Artery from Left Internal Mammary, Open Approach (ICD-10-PCS; principal; 2017-02-23 12:47)
PROC: 021109W Bypass Coronary Artery, Two Arteries from Aorta with Autologous Venous Tissue, Open Approach (ICD-10-PCS; 2017-02-23 12:47)
PROC: 30233N1 Transfusion of Nonautologous Red Blood Cells into Peripheral Vein, Percutaneous Approach (ICD-10-PCS; 2017-02-26)
DX: I25.110 Atherosclerotic heart disease of native coronary artery with unstable angina pectoris (principal); E22.2 Syndrome of inappropriate secretion of antidiuretic hormone; E11.9 Type 2 diabetes mellitus without complications; D50.0 Iron deficiency anemia secondary to blood loss (chronic); D47.2 Monoclonal gammopathy; E66.9 Obesity, unspecified; I10 Essential (primary) hypertension; E78.5 Hyperlipidemia, unspecified; L76.32 Postprocedural hematoma of skin and subcutaneous tissue following other procedure; Z79.84 Long term (current) use of oral hypoglycemic drugs; Z79.4 Long term (current) use of insulin; I73.9 Peripheral vascular disease, unspecified; Z79.82 Long term (current) use of aspirin; Z87.891 Personal history of nicotine dependence; M10.9 Gout, unspecified; Z68.27 Body mass index [BMI] 27.0-27.9, adult; Z85.828 Personal history of other malignant neoplasm of skin
CPT/HCPCS: 36430; 71010; 76937; 80048; 81001; 82948; 83036; 83735; 83930; 83935; 84155; 84300; 84443; 84588; 85007; 85014; 85025; 85027; 85610; 85730; 86850; 86900; 86901; 86920; 87641; 93005; 93458; 93880; 93970; 93998; 94002; 94010; 94150; 94640; 94664; 94667; 94668; C1768; C1769; C1893; C9399; J0131; J0171; J0690; J1644; J1815; J1885; J1940; J2250; J2370; J2405; J2710; J2720; J3010; J3370; J3475; J7030; J7040; J7050; J7120; P9016; P9045; Q9967